=== PATIENT | female | born 1995 | race Caucasian/White ===

== ENCOUNTER 2017-11-15 07:47 | Emergency (ER) | payer OTHER, SELFPAY ==
[2017-11-15 07:49] VITALS: BP 162/98; PULSE 147; RESP 17; TEMP 37.5; O2SAT 96; BMI 51.5
--- NOTE | 2017-11-15 08:04 | ED.VISSUMM ---
- ER Visit Summary Date of Service: 11/15/17 Chief Complaint: Sore throat History of Present Illness: The patient is a [address] Packer. She reports that she has a sore throat that began yesterday. She had a fever to 100.9?. She describes the pain as sharp and severe. It is worsened with swallowing and relieved by nothing. She denies a cough. 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 Physical Examination: Vitals: 99.5, 162/98, 147, 17, 96% on room air which is not hypoxic. General: Well-nourished and well-developed. HEENT: Bilateral tonsillar enlargement and exudates. No peritonsillar abscess. No uvular shift. She does have tender anterior cervical lymphadenopathy. TMs are within normal limits. Head: Normocephalic atraumatic. Cardiovascular: Regular rate and rhythm. No murmurs. Respiratory: No respiratory distress. Clear to auscultation bilaterally. Abdominal: Soft, nontender, nondistended, normal bowel sounds. No guarding, rebound, or peritoneal signs. Back: Nontender. Extremities: Nontender, no edema. Skin: Normal color, no rash. Neurologic: Alert and oriented ?3. Cranial nerves II through XII are intact. Normal strength and sensation. Psych: Normal affect. Emergency Department Course and Treatment: The prolonged discussion with patient about her tachycardia. She began phentermine yesterday. She states that she has been drinking well except for overnight after her sore throat worsened. She refused an IV for fluids. Discussed the patient possibility of a negative rapid strep and 5 day wait for the return of her throat culture. She would like to be on antibiotics during this 5 day period of time regardless. Due to this she chose not to have the rapid strep and will be placed on amoxicillin. She is also given a dose of ibuprofen and dexamethasone. Her Centor score is 4 and I feel that this is a reasonable course of action. Treatment Plan: Patient will be discharged on amoxicillin. Instructed to follow-up with Dr. Villafuerte regarding her tachycardia from the phentermine. Follow-up Dr. Villalba 1 week if her throat is not improving. Return to the emergency department for any worsening symptoms. Disposition: To home in improved and stable condition. Impression: 1. Pharyngitis, presumed strep. 2. Sinus tachycardia on phentermine. This note was generated with [employer] dictation software. It may contain incorrect words, spelling, and punctuation that were not noted in review of the chart prior to signing ED Disposition - Plan for ED Patient: Chief Complaint: Sore Throat Instructions: ED Strep Pharyngitis Poss Prescriptions: Amoxicillin [Amoxil Suspension] 500 mg PO Q8H 10 Days ml Referrals: Joanie Packer MD [Primary Care Provider] - 1 Week if not improving Additional Instructions: Keep an eye on your heart rate and follow-up with Dr. Villafuerte regarding the fast heart rate from the phentermine.
--- NOTE | 2017-11-15 08:08 | ED.DCSUM_ITS ---
- ER Visit Summary Date of Service: 11/15/17 Chief Complaint: Sore throat History of Present Illness: The patient is a [address] Packer. She reports that she has a sore throat that began yesterday. She had a fever to 100.9?. She describes the pain as sharp and severe. It is worsened with swallowing and relieved by nothing. She denies a cough. 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 Physical Examination: Vitals: 99.5, 162/98, 147, 17, 96% on room air which is not hypoxic. General: Well-nourished and well-developed. HEENT: Bilateral tonsillar enlargement and exudates. No peritonsillar abscess. No uvular shift. She does have tender anterior cervical lymphadenopathy. TMs are within normal limits. Head: Normocephalic atraumatic. Cardiovascular: Regular rate and rhythm. No murmurs. Respiratory: No respiratory distress. Clear to auscultation bilaterally. Abdominal: Soft, nontender, nondistended, normal bowel sounds. No guarding, rebound, or peritoneal signs. Back: Nontender. Extremities: Nontender, no edema. Skin: Normal color, no rash. Neurologic: Alert and oriented ?3. Cranial nerves II through XII are intact. Normal strength and sensation. Psych: Normal affect. Emergency Department Course and Treatment: The prolonged discussion with patient about her tachycardia. She began phentermine yesterday. She states that she has been drinking well except for overnight after her sore throat worsened. She refused an IV for fluids. Discussed the patient possibility of a negative rapid strep and 5 day wait for the return of her throat culture. She would like to be on antibiotics during this 5 day period of time regardless. Due to this she chose not to have the rapid strep and will be placed on amoxicillin. She is also given a dose of ibuprofen and dexamethasone. Her Centor score is 4 and I feel that this is a reasonable course of action. Treatment Plan: Patient will be discharged on amoxicillin. Instructed to follow -up with Dr. Villafuerte regarding her tachycardia from the phentermine. Follow -up Dr. Villalba 1 week if her throat is not improving. Return to the emergency department for any worsening symptoms. Disposition: To home in improved and stable condition. Impression: 1. Pharyngitis, presumed strep. 2. Sinus tachycardia on phentermine. This note was generated with [employer] dictation software. It may contain incorrect words, spelling, and punctuation that were not noted in review of the chart prior to signing ED Disposition - Plan for ED Patient: Chief Complaint: Sore Throat Instructions: ED Strep Pharyngitis Poss Prescriptions: Amoxicillin [Amoxil Suspension] 500 mg PO Q8H 10 Days ml Referrals: Joanie Packer MD [Primary Care Provider] - 1 Week if not improving Additional Instructions: Keep an eye on your heart rate and follow-up with Dr. Villafuerte regarding the fast heart rate from the phentermine.
[2017-11-15] MEDS: Ibuprofen 100 MG/5 ML UDC 800 MG PO (08:27)
[2017-11-15 08:34] VITALS: BP 111/55; PULSE 95; RESP 18; O2SAT 97
[2017-11-15] MEDS: Amoxicillin 200MG/5 ML Susp PO.SYRINGE 500 MG PO (08:35)
--- NOTE | 2017-11-15 08:55 | ED.RN ---
PT REMAINS SLIGHTLY DIZZY. VITAL SIGNS STABLE. AWARE. COLD CLOTH PROVIDED. PT OFFERED IV FLUIDS. CONTINUES TO REFUSE AT THIS TIME BUT DOES KNOW ITS AN OPTION
[2017-11-15 10:17] VITALS: BP 146/92; PULSE 117; RESP 18
[2017-11-15 10:43] VITALS: BP 161/94; PULSE 110; RESP 18; O2SAT 97
== END 2017-11-15 10:47 | disposition home or self-care (01) ==
PROVIDERS: Emergency Provider Emergency Medicine; Family Provider Family Medicine; PCP Family Medicine
DX: J02.9 Acute pharyngitis, unspecified (principal); R00.0 Tachycardia, unspecified
CPT/HCPCS: 99283

== ENCOUNTER → 2018-02-25 08:07 | Outpatient (CLI) | payer OTHER, SELFPAY ==
--- NOTE | 2018-02-25 08:08 | US_ITS ---
STUDY: ABDOMINAL ULTRASOUND - RIGHT UPPER QUADRANT REASON FOR VISIT: Female, 22 years old. Intermittent right upper quadrant pain for one year. TECHNIQUE: Ultrasound evaluation of the right upper quadrant was performed with real-time and static gagnon-scale imaging. TECHNICAL QUALITY: Adequate. COMPARISON: Right upper quadrant ultrasound March 12, 2017. FINDINGS: Liver: The liver measures 16.8 cm. There is increased echogenicity consistent with fatty infiltration. The bile ducts are within normal limits. There is hepatic color flow. The direction of portal flow is hepatopetal. There is no demonstrated mass lesion. Gallbladder: Normal distended gallbladder. The gallbladder wall measures 2.9 mm. There is a negative sonographic Devi's sign. There is no pericholecystic fluid. There is small volume biliary sludge dependent within the gallbladder. Common Bile Duct (C.B.D.): The common bile duct measures 3.8 mm. Pancreas: Normal size of the head, body and tail of the pancreas. There is increased echogenicity of the pancreas. There is no demonstrated pancreatic mass or cyst. Right Kidney: Normal size of the right kidney. The right kidney measures 10.0 x 6.6 x 4.2 cm. Normal renal cortex. The right cortex measures 1.5 cm. There is no demonstrated renal mass or cyst. There is no right hydronephrosis. US/Abdomen Limited IMPRESSION: 1. Small volume sludge in the gallbladder. No sign of acute cholecystitis or bile duct obstruction. 2. Fatty infiltration of the liver and pancreas. Electronically Signed: Booker Curry MD at 16:08 EDT , Service support ,
== END ==
PROVIDERS: Family Provider Family Medicine; PCP Family Medicine; Visit Provider Family Medicine
DX: R10.84 Generalized abdominal pain (principal)
CPT/HCPCS: 76705

== ENCOUNTER → 2018-03-08 09:28 | Outpatient (CLI) | payer OTHER, SELFPAY ==
--- NOTE | 2018-03-08 09:32 | NM_ITS ---
CLINICAL: 22-year-old female with reported history of postprandial right upper quadrant abdominal pain. RADIONUCLIDE HEPATOBILIARY SCINTIGRAPHY COMPARISON: Abdominal ultrasound report 02/25/2018 FINDINGS: Following the intravenous administration of 5.5 mCi of 99m Tc Mebrofenin, hepatobiliary images reveal:. 1. Relatively prompt and homogeneous radiopharmaceutical concentration is noted by a normal sized liver. No parenchymal defects are identified. 2. Gallbladder activity is identified at 10 minutes post radiopharmaceutical administration. 3. Small intestinal tract is observed at 30 minutes following tracer injection. 4. Washout of the radiopharmaceutical by the hepatic parenchyma appears qualitatively normal. The patient was administered a fatty meal (8 ounces Boost). The post fatty meal ingestion gallbladder ejection fraction calculated at 60 minutes was noted to be 7.0 % (normal greater than 30%). NM/Hepatobilliary Img w/Pharm Int IMPRESSION: 1. ABNORMAL 99m Tc Mebrofenin hepatobiliary imaging examination with fatty meal ingestion. A. A gallbladder ejection fraction calculated to be less than 30% following the administration of an ingested fatty meal is consistent with the presence of functional hepatobiliary disease (gallbladder and/or sphincter of Oddi dyskinesia) and/or organic hepatobiliary disease (chronic acalculous cholecystitis and/or cystic duct syndrome) in patients with intermediate to high pretest probabilities of hepatobiliary illness. (Maritza and Diego, J Nucl Med 43: 1603, 2002). Electronically Signed: Toan Dunne DO at 10:06 EDT Tel , Service support ,
== END ==
PROVIDERS: Family Provider Family Medicine; PCP Family Medicine; Visit Provider Family Medicine
DX: R10.9 Unspecified abdominal pain (principal)
CPT/HCPCS: 78227; A9537

== ENCOUNTER 2018-03-23 11:15 | Day surgery (SDC) | payer OTHER, SELFPAY ==
[2018-03-23] VITALS (10 sets, daily range): BP systolic 132–157; BP diastolic 71–98; PULSE 80–107; RESP 16–20; TEMP 36.1–36.4; O2SAT 91–100; BMI 52.8
[2018-03-23 11:45] LABS: Internal QC Validated? YES +Cl - CLEAR BKGD; Pregnancy, Urine Negative Negative
--- NOTE | 2018-03-23 13:00 | RAD_ITS ---
STUDY: INTRAOPERATIVE CHOLANGIOGRAM. REASON FOR EXAM: Female, 22 years old. Laparoscopic cholecystectomy. FLUOROSCOPY TIME (if supplied): (0:12) minutes/seconds. TECHNIQUE: An intraoperative cholangiogram was performed by the surgeon. Imaging was provided. COMPARISON: None. FINDINGS: The visualized intra and extra hepatic biliary ducts are unremarkable. There is free flow of contrast into the duodenum. RAD/Cholangiogram/ O R,Initial IMPRESSION: Unremarkable intraoperative cholangiogram. Electronically Signed: Quinton Hu MD at 15:09 EDT Tel [phone], Service support ,
--- NOTE | 2018-03-23 13:00 | GALL_PTH ---
PATIENT: DIPIKA ALTAMIRANO LOC: [facility] U#:[id number] AGE/SX: 22/F ROOM: RE03/23/[address]: Dr. Rio Funk MD : 1995 BED: DIS: 03/23/2018 SPEC #: [id number] RECD: 03/23/18 15:14 STATUS: GRACIELA NEAL #: [id number] LEFTY: 03/23/18 13:[address]: Rio Funk DEPT: SURGICAL PATHOLOGY RECD BY: Toan Damon ENTERED: 03/24/18 08:17 SP TYPE: LEYDA LOCKHART DR: Dr. Joanie Packer MD Tissues: Gallbladder, NOS Procedures: Surgery Specimen Level III HEADER OPERATION: Laparoscopic cholecystectomy with IOC PRE-OP DIAGNOSIS: Gallbladder sludge TISSUE SUBMITTED: Gallbladder MICROSCOPIC DIAGNOSIS Gallbladder, cholecystectomy: Cholesterolosis and mild chronic cholecystitis. AM:lan 03/25/18 MICROSCOPIC DESCRIPTION Slides are reviewed. GROSS DESCRIPTION Received is one container labeled with the patient's name and designated gallbladder. The specimen consists of a gallbladder measuring 6.5 cm in length and 3 cm in diameter. The external surface is pink-noble, smooth and glistening for the most part. Focally it is granular, hemorrhagic and contains cautery artifact. The gallbladder contains green-yellow mucoid bile. No stones are identified in the container or in the gallbladder. The mucosa also shows several yellowish streaks consistent with cholesterolosis. The mucosa is bile-stained and without any mass lesions. The gallbladder wall measures 0.2 cm in thickness. School Manager sections from the gallbladder and the cystic duct are submitted in one cassette. / SJ:rg 03/24/18 TC:3 [facility]: [id number]
[2018-03-23] MEDS: Bupivacaine 0.25% 30 ML Vial (14:26)
--- NOTE | 2018-03-23 14:26 | OP.PCM_ITS ---
Problem List (1) Biliary colic Status: Acute Report of Operation Date of Procedure: 03/23/18 Pre-Operative Diagnosis: Biliary colic Post-Operative Diagnosis: Same Surgery/Procedure Performed:: Laparoscopic cholecystectomy with Intra-Op cholangiograms Specimen's removed: Gallbladder and contents Description of Procedure: After obtaining informed consent patient was brought back to the operating room. General anesthesia was induced. The abdomen was prepped and draped in usual sterile fashion. A small incision was made in the right upper quadrant. A 5 mm port was used in a Visiport fashion to enter the abdomen. The abdomen was then insufflated to 15 mmHg. Next a small midline incision was made superior to the umbilicus. A 12 mm port was placed through this under direct visualization. Next the camera was moved to the umbilical site and the abdomen was inspected for any injuries upon entering the abdomen and there were none. Next a 5 mm port was placed in the subxiphoid space and again in the right upper quadrant. Next the gallbladder was elevated and retracted toward the right shoulder. The peritoneum was stripped from the gallbladder. The infundibulum was located and retracted laterally. Next the triangle of Calot was dissected and the cystic duct and cystic artery were identified. Cholangiograms were performed. The Church catheter was used to clamp across the infundibulum and the needle was inserted into the gallbladder. Under fluoroscopy contrast was instilled into the gallbladder and the common duct, cystic duct as well as proximal hepatic ducts were identified. There was good filling of the duodenum. There were no filling defects noted in the common bile duct. The clamp was removed as well as the needle and the infundibulum was grasped once more. Three hemolock clips were placed across the cystic duct. The cystic duct was then divided leaving 2 clips on the stump. The cystic artery was clipped and divided in the same fashion. The hook cautery was then used to take the gallbladder off of the gallbladder bed. Hemostasis was obtained. Gallbladder fossa was irrigated and no active bleeding or bile leakage was noted. Next the camera switched to a 5 mm camera and introduced in the subxiphoid port. An Endopouch bag was placed through the umbilical port and the gallbladder was placed into it. The gallbladder was then removed through the umbilical incision. The camera was then reinserted through the umbilical port. The gallbladder fossa was inspected once more and noted to be hemostatic with no leaking bile. The abdomen was suctioned dry the 5 mm ports were removed under direct visualization. The umbilical port was then removed and the air was removed from the abdomen. Next using an 0 Vicryl suture the umbilical fascia was closed in a [id number] fashion. The umbilical port site was irrigated local anesthetic was administered to all the incisions. All the incisions were closed subcuticular 4-0 Monocryl sutures followed by Steri- Strips and dressings. The patient was awoken and taken to PACU in stable condition. - Admit VTE Documentation VTE Mechan Device Prophylaxis: SCD's
--- NOTE | 2018-03-23 14:28 | PCM.DC.GB ---
Discharge Diet: Light diet - advance as tolerated Discharge Activity: Return to Normal Activity, May Not Drive - for 2-3 days or while taking narcotic pain medicataions., - - Do not drive, work heavy equipment or sign legal documents for 24 hours. May shower in (days): 1 - with the bandage in place. Lifting Restrictions: 20 lbs for 2 weeks Additional Activity Instructions:: Pain medication may cause nausea. You should typically eat light foods as you take your pain medications. Pain medication may also cause constipation. If this is a problem for you, please discuss with your doctor. Call your doctor if your incision/area has: Continuous Slow Oozing, Sudden Increased Bleeding, Increased Pain/ Swelling, Increased Redness, Foul Smelling Discharge, Fever of 101 or Higher Call your doctor if you observe: Fever of 101 or Higher Suture Line Care: Avoid Pulling/Pushing, Avoid Pinching/Bending Additional Dressing/Incision Instructions:: Leave operative bandaids on for 2 days. When you remove dressing, leave Steri-Strips on until your follow-up appointment, or until the Steri-Strips fall off on their own. Allergies/Adverse Reactions: Allergies No Known Allergies Allergy (Verified 03/22/18 10:55) Medications to take at Discharge Oxycodone HCl/Acetaminophen [Percocet 5/325] 1 - 2 tablet PO Q4H PRN PRN 7 Days #40 tablet 03/23/18 The following prescriptions were given: Oxycodone HCl/Acetaminophen [Percocet 5/325] 1 - 2 tablet PO Q4H PRN PRN 7 Days #40 tablet PRN Reason: Pain Primary Care Physician: Joanie Packer MD [Primary Care Provider] - Please Follow Up With: Rio Funk MD When: Please call to schedule 2 week follow up appointment. [phone]
== END 2018-03-23 17:45 | disposition home or self-care (01) ==
LOC: SDC 11:15 → AC 11:17
PROVIDERS: Family Provider Family Medicine; PCP Family Medicine; Visit Provider Surgery
PROC: (CPT 47610; principal; 2018-03-23 12:40)
DX: K80.10 Calculus of gallbladder with chronic cholecystitis without obstruction (principal); E28.2 Polycystic ovarian syndrome; Z87.891 Personal history of nicotine dependence; E66.9 Obesity, unspecified; Z68.43 Body mass index [BMI] 50.0-59.9, adult
CPT/HCPCS: 00790; 47563; 74300; 76000; 81025; 88304; 93005; J7120; J2405

== ENCOUNTER → 2018-07-18 08:52 | Outpatient (CLI) | payer OTHER, SELFPAY ==
[2018-07-18 09:49] LABS: hCG Titer Quant., Serum < 1 mIU/mL (<9 non-preg)
== END ==
PROVIDERS: Family Provider Family Medicine; PCP Family Medicine; Visit Provider Obstetrics & Gynecology
DX: O20.0 Threatened abortion (principal); Z3A.00 Weeks of gestation of pregnancy not specified
CPT/HCPCS: 36415; 84702

== ENCOUNTER → 2018-07-20 08:04 | Outpatient (CLI) | payer OTHER, SELFPAY ==
[2018-07-20 08:51] LABS: hCG Titer Quant., Serum < 1 mIU/mL (<9 non-preg)
== END ==
PROVIDERS: Family Provider Family Medicine; PCP Family Medicine; Referring Provider Obstetrics & Gynecology; Visit Provider Obstetrics & Gynecology
DX: O20.0 Threatened abortion (principal)
CPT/HCPCS: 36415; 84702

== ENCOUNTER → 2019-01-27 09:55 | Outpatient (CLI) | payer OTHER, SELFPAY ==
[2018-10-31 14:02] VITALS: BMI 51.7
[2019-01-27 11:35] LABS: hCG Titer Quant., Serum < 1 mIU/mL (<9 non-preg)
== END ==
PROVIDERS: Family Provider Family Medicine; PCP Family Medicine; Referring Provider Obstetrics & Gynecology; Visit Provider Obstetrics & Gynecology
DX: Z32.01 Encounter for pregnancy test, result positive (principal)
CPT/HCPCS: 36415; 84702

== ENCOUNTER → 2019-11-13 15:56 | Outpatient (CLI) | payer BC, SELFPAY ==
[2019-03-22 10:28] VITALS: BMI 51.7
[2019-11-13 17:35] LABS: hCG Titer Quant., Serum < 1 mIU/mL (1-3)
== END ==
PROVIDERS: Obstetrics & Gynecology; Referring Provider Nurse Practitioner Women's Health; Visit Provider Nurse Practitioner Women's Health
DX: Z32.01 Encounter for pregnancy test, result positive (principal)
CPT/HCPCS: 36415; 84702

== ENCOUNTER → 2020-06-06 | Outpatient (CLI) | payer BC, SELFPAY ==
[2019-03-22 10:28] VITALS: BMI 51.7
--- NOTE | 2020-06-06 11:17 | RAD_ITS ---
STUDY: X-RAY - LEFT ANKLE REASON FOR EXAM: Female, 24 years old. ROLLED ANKLE X2 DAYS AGO, PAIN TECHNIQUE: 3 view(s) of the ankle. COMPARISON: None. FINDINGS: Normal visualized distal tibia and fibula. Normal medial and lateral malleoli. Normal tibiotalar articulation and ankle mortise. Normal visualized talus and calcaneus. The visualized subtalar, talonavicular, calcaneocuboid and tarsal articulations are normal. Lateral soft tissue swelling. RAD/Ankle min 3 Views IMPRESSION: Lateral soft tissue ankle injury without underlying fracture or dislocation. Electronically Signed: Anisha Granados MD at 23:10 EDT , Service support ,
== END | disposition home or self-care (01) ==
LOC: MTRAD 11:16
PROVIDERS: PCP Family Medicine; Referring Provider Family Medicine; Visit Provider Family Medicine
DX: S99.912A Unspecified injury of left ankle, initial encounter (principal)
CPT/HCPCS: 73610

== ENCOUNTER 2021-02-19 19:09 | Emergency (ER) | payer OTHER, SELFPAY ==
[2019-03-22 10:28] VITALS: BMI 51.7
[2021-02-19 19:09] VITALS: BP 170/113; PULSE 102; RESP 18; TEMP 35.8; O2SAT 97; BMI 44.2
--- NOTE | 2021-02-19 20:09 | EDS_ITS ---
HPI HPI - Psych History of Present Illness Chief Complaint: Anxiety Informant: patient Onset/Context/Timing Onset: Days Context: Sudden Onset Conflict: - (Patient states there is been no conflict with , family, associates at work or friends.) Timing: Continuous Current Severity: Mild Maximum Severity: Moderate Worsened by: - (Nothing) Relieved by: Nothing Associated Symptoms Associated Symptoms - Psych: Positive for Change in Eating and Increased activity; Negative for Depressed, Change in sleeping, Decreased Interest, Decreased Concentration, Hopelessness, Suicidal Thoughts, Easily distracted, Grandiosity, Flight of Ideas, Pressured Speech, Agitated, Angry, Hostile, Threatening, Confusion, Paranoia, Visual Hallucinations and Auditory Hallucinations Specific plan (suicidal thought): Not applicable Narrative Narrative: Patient is a 25-year-old female who presents because of r acing thoughts and feeling anxious. She has no precipitating factor. She denies any issues at home or work or with friends. She denies being depressed or suicidal. There is no significant family history of psychiatric disorder. She has no other complaints. Prior similar symptoms: No Recent Illness/[facility]ospital[facility]: [facility] Medical History BMI 50.0-59.9, adult Chronic cholecystitis PCOS (polycystic ovarian syndrome) PCOS (polycystic ovarian syndrome) Home Medications lorazepam 0.5 mg PO TID #10 tab 02/19/21 [Rx Last Taken Unknown] Allergy/AdvReac Type Severity Reaction Status Date / Time No Known Allergies Allergy Verified 02/19/21 19:12 Surgical History History of laparoscopic cholecystectomy (~03/23/18) Social History (Updated 02/19/21 @ 20:[address] Fan Butler MD) Smoking Status: Current every day smoker alcohol intake: current details: social substance use type: does not use caffeine: Yes what type of physical activity do you participate in: walking seatbelt use: always do you feel safe at home: Yes additional social history: Spouse Valeriy Shipley Patient works at [employer] for [employer] ROS ED Constitutional Constitutional ED: Denies chills, fever(s), subjective or sweats Eyes Eyes: Denies blurry vision or change in vision ENT ENT ED: Denies ear pain, rhinorrhea or sore throat Cardiovascular Cardiovascular: Denies chest pain, palpitations or racing heartbeat Respiratory/Chest Respiratory/Chest: Denies cough, dyspnea or dyspnea on exertion Gastrointestinal Gastrointestinal: Denies abdominal pain, diarrhea, nausea or vomiting Genitourinary Genitourinary ED: Denies dysuria, hematuria or urinary frequency Musculoskeletal Musculoskeletal: Denies arthralgias, back pain, myalgias or neck pain Integumentary Denies rash Neurologic Neurologic: Denies headache(s), paresthesias or weakness Psychiatric Psychiatric: Reports anxiety; Denies depression or suicidal thoughts EXAM Physical Exam Const Vital Signs: 02/19/21 19:09 Temperature 96.5 F L Temperature Source Temporal Pulse Rate 102 H Respiratory Rate 18 Blood Pressure 170/113 H Blood Pressure Mean 132 Pulse Ox 97 Oxygen Delivery Method Room Air Positive well nourished, well developed and obese General Appearance ED: well developed; Negative for pallor Nutritional Appearance: obese HEENT Reports moist mucous membranes normocephalic and atraumatic Eyes PERRL and EOMs intact bilaterally Eyes Narrative: There is no nystagmus. General Eye ED: Negative for pale conjunctiva or scleral icterus Neck no lymphadenopathy, supple and no JVD Resp normal respiratory effort and clear to auscultation bilaterally Cardio S1 normal heart sound, S2 normal heart sound and no murmurs Rate: regular rate Rhythm: regular rhythm GI non-tender, non-distended and no masses Auscultation: normoactive bowel sounds Palpation: soft Back/Spine no CVA tenderness Extremity normal to inspection General Extremety ED: Negative for edema or tenderness General Extremity: Negative for edema Neuro oriented x3, CN's II-XII intact bilaterally, no sensory deficits noted and deep tendon reflexes 2+ bilaterally Sensorium / Orientation: alert Motor Exam: strength 5/5 throughout Psych mental status grossly normal, thought process normal, cooperative, affect normal, speech normal, activity/motor behavior normal, denies hallucinations, denies homicidal ideation and denies suicidal ideation Appearance: grossly normal, appropriate and well kempt Activity / Motor Behavior: appropriate eye contact Speech: normal speech Mood & Affect: elevated mood Thought Process: normal thought process Thought Content: normal thought content Attention / Concentration: attention grossly intact Memory / Cognition: memory grossly intact Insight: insight good Judgement: judgement good Skin General Skin Exam: Negative for jaundice or pallor Lesions: no lesions Rashes: no rashes MDM MDM MDM Narrative Medical decision making narrative: Patient presents with feeling anxious and her mind racing. She was treated with Ativan in the emergency department and a prescription for Ativan. Since she is not a primary care physician she was referred to a primary care physician and the counseling center. She denies any symptoms to suggest hyperthyroidism. Discharge Plan Triage Chief Complaint: Anxiety ED Provider: Fan Butler Dx/Rx/DC Orders Instructions: ED Anxiety Reaction Prescriptions: New lorazepam [lorazepam] 0.5 MG tablet 0.5 mg PO TID Qty: 10 RF: 0 Referrals: Counseling,Center [GROUP OF PHYSICIANS] - 3-5 Days Fernando Hinojosa MD [STAFF PHYSICIAN] - 3-5 Days (Referred since she has no PCP and referral to counseling center) Disposition Disposition: Home, self care
[2021-02-19] MEDS: LORazepam 0.5 MG Tablet PO (20:13)
[2021-02-19 20:41] VITALS: BP 156/60; PULSE 83; RESP 18; O2SAT 96
== END 2021-02-19 20:44 | disposition home or self-care (01) ==
PROVIDERS: Emergency Provider Emergency Medicine
DX: F41.9 Anxiety disorder, unspecified (principal); F17.200 Nicotine dependence, unspecified, uncomplicated; E66.9 Obesity, unspecified; Z79.899 Other long term (current) drug therapy
CPT/HCPCS: 99283

== ENCOUNTER 2021-03-26 14:25 | Emergency (ER) | payer OTHER, SELFPAY ==
[2021-03-26 14:25] VITALS: BP 173/108; PULSE 115; RESP 22; TEMP 36.2; O2SAT 95; BMI 56.7
--- NOTE | 2021-03-26 14:34 | EDS_ITS ---
HPI History of Present Illness Chief Complaint: Asthma Informant: patient Onset/Context/Timing Onset: Today Context: Gradual Onset Timing: Waxes and wanes Current Severity: Mild Maximum Severity: Moderate Narrative Narrative: Patient present secondary to asthma attack. Patient states she was at work going up and down steps. She is exercise induced asthma and states she started to get tight and wheezy. Her inhaler is at home and she did not have her with her at work. Symptoms started about an hour ago when she states this attack seems to be lasting longer than normal. It is improving. Patient does admit that she has anxiety and is not sure if her symptoms are lasting longer because she had a panic attack with this episode. She denies recent illness. No cough, fever, chills. [facility] Medical History (Updated 03/26/21 @ 16:[address] Shari Rojas MD) Anxiety Asthma BMI 50.0-59.9, adult Chronic cholecystitis PCOS (polycystic ovarian syndrome) Home Medications lorazepam 0.5 mg PO TID #10 tab 02/19/21 [Rx Last Taken Unknown] Allergy/AdvReac Type Severity Reaction Status Date / Time No Known Allergies Allergy Verified 03/26/21 14:28 Surgical History History of laparoscopic cholecystectomy (~03/23/18) Social History Smoking Status: Current some day smoker tobacco type: cigarettes alcohol intake: current details: social substance use type: does not use caffeine: Yes what type of physical activity do you participate in: walking seatbelt use: always do you feel safe at home: Yes additional social history: Spouse Valeriy Shipley Patient works at [employer] for [employer] ED Constitutional Constitutional ED: Denies chills or fever(s) Eyes Eyes: Denies change in vision ENT ENT ED: Denies sore throat Cardiovascular Cardiovascular: Denies chest pain Respiratory/Chest Respiratory/Chest: Reports dyspnea; Denies cough Gastrointestinal Gastrointestinal: Denies abdominal pain, diarrhea, nausea or vomiting Genitourinary Genitourinary ED: Denies dysuria Musculoskeletal Musculoskeletal: Denies back pain Integumentary Denies rash Neurologic Neurologic: Denies headache(s) or weakness Psychiatric Psychiatric: Denies anxiety or depression Endocrine Endocrinology: Denies polydipsia or polyuria Allergic/Immunologic Allergic/Immunologic ED: Denies urticaria EXAM Physical Exam Const Vital Signs: 03/26/21 14:25 03/26/21 15:06 03/26/21 15:07 Temperature 97.1 F L Temperature Source Temporal Pulse Rate 115 H 75 Respiratory Rate 22 H 16 Respiratory Effort Respiratory Depth Respiratory Pattern Normal Blood Pressure 173/108 H Blood Pressure Mean 129 Pulse Ox 95 98 Oxygen Delivery Method Room Air Room Air 03/26/21 15:25 Temperature Temperature Source Pulse Rate Respiratory Rate Respiratory Effort Normal Respiratory Depth Normal Respiratory Pattern Normal Blood Pressure Blood Pressure Mean Pulse Ox Oxygen Delivery Method Room Air Positive well nourished and well developed General Appearance ED: well developed HEENT Reports normocephalic and head/scalp atraumatic Eyes PERRL and EOMs intact bilaterally Neck supple Chest Wall inspection of chest normal and palpation of chest normal Resp normal respiratory effort Auscultation: diminished lung sounds Cardio regular rate and regular rhythm GI normal to inspection, nondistended, normoactive bowel sounds Palpation: soft Extremity normal to inspection Neuro oriented x3 and no sensory deficits noted Sensorium / Orientation: alert Motor Exam: strength 5/5 throughout Psych mental status grossly normal Skin no rashes or lesions noted MDM MDM MDM Narrative Medical decision making narrative: Patient was given p.o. prednisone and a DuoNeb. Treatment and Re-Evaluation Comments:: On repeat evaluation patient reports her breathing is back to baseline. Lungs are clear to auscultation. Sat is 98% on room air. Respiratory rate is normal. Patient be discharged to home. She has a rescue inhaler at home that she will start carrying with her. She is provided a work note for today. Discharge Plan Triage Chief Complaint: Asthma ED Provider: Shari Rojas Dx/Rx/DC Orders Clinical Impression: Asthma exacerbation Instructions: ED Asthma, Acute (Adult) Prescriptions: No Action lorazepam [lorazepam] 0.5 MG tablet 0.5 mg PO TID Qty: 10 RF: 0 Primary Care Provider: Kristy Chairez Referrals: Kristy Chairez MD [Primary Care Provider] - As Needed Disposition Disposition: Home, self care
[2021-03-26] MEDS: Ipratropium/Albuterol Sulfate 3 ML AMPUL.NEB INHALATION (15:05)
[2021-03-26 15:06] VITALS: O2SAT 98
[2021-03-26 15:07] VITALS: PULSE 75; RESP 16
[2021-03-26 15:25] VITALS: O2SAT 97
[2021-03-26] MEDS: predniSONE 20 MG Tablet 60 MG PO (15:28)
[2021-03-26 16:34] VITALS: PULSE 90; RESP 16; O2SAT 98
== END 2021-03-26 16:36 | disposition home or self-care (01) ==
PROVIDERS: Emergency Provider Emergency Medicine; PCP Family Medicine
DX: J45.901 Unspecified asthma with (acute) exacerbation (principal); F41.9 Anxiety disorder, unspecified; F17.210 Nicotine dependence, cigarettes, uncomplicated; Z79.899 Other long term (current) drug therapy
CPT/HCPCS: 94640; 99283

== ENCOUNTER → 2021-03-28 09:57 | Outpatient (CLI) | payer OTHER, SELFPAY ==
[2021-03-26 14:25] VITALS: BMI 56.7
[2021-03-28 12:40] LABS: hCG Titer Quant., Serum < 1 mIU/mL (1-3)
== END ==
LOC: MTLAB 09:58
PROVIDERS: PCP Family Medicine; Referring Provider Family Medicine; Visit Provider Family Medicine
DX: N91.2 Amenorrhea, unspecified (principal)
CPT/HCPCS: 36415; 84702

== ENCOUNTER 2021-06-27 07:11 | Emergency (ER) | payer SELFPAY ==
[2021-06-27 07:12] VITALS: BP 175/114; PULSE 85; RESP 18; TEMP 36.4; O2SAT 98; BMI 58.4
[2021-06-27 08:06] LABS: Absolute Lymphocyte Count 2.08 X10^3/uL (0.83-4.51); Absolute Neutrophil Count 5.6 X10^3/uL (2.0-7.7); Basophil# 0.05 X10^3/uL; Basophil% 0.6 % (0-1); Eosinophil# 0.08 X10^3/uL; Eosinophils% 0.9 % (0-5); Hematocrit 40.3 % (37-47); Hemoglobin 12.8 g/dL (12.0-15.0); Lymphocyte # 2.08 X10^3/ul (0.83-4.51); Lymphocyte % 24.7 % (19-41); Mean Corp Hgb Conc 31.8 g/dL (32-36); Mean Corpuscular Hgb 27.9 pg (27.0-32.0); Mean Corpuscular Volume 87.8 fL (81-99); Mean Platelet Vol. 11.1 fl (6.2-12.0); Monocyte# 0.54 X10^3/uL; Monocyte% 6.4 % (0-10); NRBC Flagged by Analyzer 0 % (0-5); Neutrophil % 66.5 % (47-70); Platelet Count 174 K/mm3 (150-450); RBC Distribution Width CV 13.5 % (11.6-14.6); RBC Distribution Width SD 43.4 fl (35.1-43.9); Red Blood Count 4.59 M/mm3 (4.2-5.4); White Blood Count 8.4 K/mm3 (4.4-11.0)
[2021-06-27 08:21] LABS: International Normalized Ratio 0.9; Prothrombin Time (Protime)PT. 11.5 SECONDS (11.7-14.9)
[2021-06-27 08:25] LABS: ALB/GLOB Ratio 0.6 RATIO (0.9-2.4); AST(SGOT) 23 U/L (15-37); Alanine Aminotransfer ALT/SGPT 34 U/L (13-56); Albumin, Serum 2.9 g/dL (3.2-5.0); Alkaline Phosphatase 77 U/L (45-117); Anion Gap 4 (5-15); BUN 10 mg/dL (7-18); BUN/Creat Ratio 13.2 RATIO (10-20); Calcium,Total 8.5 mg/dL (8.5-10.1); Chloride 109 mmol/L (98-107); Creatinine, Serum 0.76 mg/dL (0.55-1.02); EST Glomerular Filtration Rate 98 mL/min (>60); Est Glom Filt Rate - Afr Amer 118 mL/min (>60); Estimated Creatinine Clearance 96.01 ml/min; Globulin 4.5 g/dL (2.2-4.2); Glucose 114 mg/dL (74-106); Potassium 4.1 mmol/L (3.5-5.1); Protein, Total 7.4 g/dL (6.4-8.2); Sodium Level 139 mmol/L (136-145)
[2021-06-27 10:23] VITALS: BP 160/98; PULSE 79; RESP 16; O2SAT 98
--- NOTE | 2021-06-28 11:37 | EDS_ITS ---
HPI HPI - GI History of Present Illness Chief Complaint: GI Bleed Narrative Narrative: Patient presenting with concern for GI bleed. She has blood on the toilet paper when she wipes. This is a new issue for her. She denies any lightheadedness, dizziness, nausea, vomiting. She has no melena. She has no abdominal pain. Patient states that she does not have any known hemorrhoids. She states it is not painful when she defecates. PFSH PFSH Medical History Anxiety Asthma BMI 50.0-59.9, adult Chronic cholecystitis PCOS (polycystic ovarian syndrome) Home Medications albuterol sulfate [ProAir HFA] 1 - 2 inh INHALATION Q4H PRN PRN 03/26/21 [History Last Taken Unknown] Allergy/AdvReac Type Severity Reaction Status Date / Time No Known Allergies Allergy Verified 06/27/21 07:13 Surgical History History of laparoscopic cholecystectomy (~03/23/18) Social History Smoking Status: Current some day smoker tobacco type: cigarettes alcohol intake: current details: social substance use type: does not use caffeine: Yes what type of physical activity do you participate in: walking seatbelt use: always do you feel safe at home: Yes additional social history: Spouse Valeriy Shipley Patient works at [employer] for [employer] ED Constitutional Constitutional ED: Denies chills, fever(s) or sweats ENT ENT ED: Denies rhinorrhea or sore throat Cardiovascular Cardiovascular: Denies chest pain or palpitations Respiratory/Chest Respiratory/Chest: Denies cough, dyspnea or sputum Gastrointestinal Gastrointestinal: Reports other Details: GI bleeding ; Denies abdominal pain, nausea or vomiting Genitourinary Genitourinary ED: Denies dysuria or hematuria Musculoskeletal Musculoskeletal: Denies arthralgias or myalgias Integumentary Denies abscess, Abrasions or rash Neurologic Neurologic: Denies headache(s) or weakness EXAM Physical Exam Const Positive well nourished General Appearance ED: NAD; Negative for pallor HEENT Reports moist mucous membranes normocephalic and atraumatic Eyes PERRL and EOMs intact bilaterally General Eye ED: Negative for pale conjunctiva Neck no lymphadenopathy and supple Resp normal respiratory effort Cardio regular rate and regular rhythm GI non-tender and non-distended GI Narrative: No internal/external hemorrhoids noted on examination. Patient has brown stool with mucus and a small blood tingeing on stool sample. Palpation: soft Back/Spine no CVA tenderness Neuro Sensorium / Orientation: alert, oriented to person, oriented to place and oriented to time Skin General Skin Exam: Negative for pallor Lesions: no lesions Rashes: no rashes MDM MDM MDM Narrative Medical decision making narrative: Patient presenting with blood on toilet paper when she wipes. Patient has a small amount of blood on rectal exam and there are no hemorrhoids either internal or externally that I note. Patient's vital signs are stable and she is afebrile. Patient's hemoglobin is 12.8. Coagulation studies normal. Renal function electrolytes are normal. Patient was discussed with Dr. Meza who felt she was stable for outpatient follow- up. Patient is counseled to return if she has increasing bleeding or symptoms such as lightheadedness, dizziness, shortness of breath. Patient acknowledged understanding. She is discharged home in stable condition. Impression 1. Lower GI bleed stable Discharge Plan Triage Chief Complaint: GI Bleed ED Provider: Bridger Salmeron Dx/Rx/DC Orders Instructions: ED Lower GI Bleeding (Stable) Prescriptions: No Action albuterol sulfate [ProAir HFA] 90 mcg/actuation HFA aerosol inhaler 1 - 2 inh INHALATION Q4H PRN PRN (Reason: wheezing) RF: 0 Primary Care Provider: Kristy Chairez Referrals: Kristy Chairez MD [Primary Care Provider] - Ana Meza MD [STAFF PHYSICIAN] - As soon as possible Disposition Disposition: Home, Self Care Discharge Date/Time: 06/27/21 10:25
== END 2021-06-27 10:25 | disposition home or self-care (01) ==
PROVIDERS: Emergency Provider Student in an Organized Health Care Education/Training Program; PCP Family Medicine
DX: K92.2 Gastrointestinal hemorrhage, unspecified (principal); J45.909 Unspecified asthma, uncomplicated; F17.210 Nicotine dependence, cigarettes, uncomplicated; Z79.51 Long term (current) use of inhaled steroids
CPT/HCPCS: 80053; 85025; 85610; 99283; A4216

== ENCOUNTER 2021-07-11 06:47 | Day surgery (SDC) | payer SELFPAY ==
--- NOTE | 2021-07-11 07:01 | HP.PCM_ITS ---
History and Physical Date of Admission: 07/11/21 Intake Vital Signs 07/02/21 08:13 Height 5 ft 4 in Weight: 340 lb BMI 58.3 BP 138/81 H Blood Pressure Location Rt brachial Position Sitting Respiration 18 Intake Visit Reasons: ER F/U GI BLEEDING Chief Complaint: f/u GI bleed [employer] Worker Required: No Is patient in pain?: No Allergies No Known Allergies Allergy (Verified 07/02/21 08:00) Medications albuterol sulfate [ProAir HFA] 1 - 2 inh INHALATION Q4H PRN PRN 03/26/21 [History Confirmed 06/27/21] escitalopram oxalate 20 mg tablet 20 mg PO DAILY 07/02/21 [History Confirmed 07/02/21] lorazepam 1 mg tablet 1 mg PO DAILY PRN 07/02/21 [History Confirmed 07/02/21] PFSH Medical History Anxiety Asthma BMI 50.0-59.9, adult Chronic cholecystitis PCOS (polycystic ovarian syndrome) Surgical History History of laparoscopic cholecystectomy (~03/23/18) Social History Smoking Status: Current some day smoker tobacco type: cigarettes alcohol intake: current details: social substance use type: does not use caffeine: Yes what type of physical activity do you participate in: walking seatbelt use: always do you feel safe at home: Yes additional social history: Spouse Valeriy Shipley Patient works at [employer] for [employer] Female Reproductive History Menstrual Ab spontaneous: 1 HPI HPI HPI: DIPIKA MICHAELS, is a 26 F who presents to the office today for rectal bleeding. The patient reports for the last week she has been having bright red blood per rectum. She is also having pain with defecation. She does not report any hard stools or constipation. She does not have any anal or rectal pain at rest. No abdominal pain. No nausea or vomiting. ROS General General: Yes fatigue; No weight change, appetite, colon cancer, breast cancer or weakness HEENT HEENT: No difficulty swallowing, eye injury, eye surgery, swollen glands or hoarseness Endo Endocrine: No thyroid disease, diabetes mellitus, thyroid cancer, Hair loss, heat intolerance or cold intolerance Skin Skin: No rash or changing moles Breast Breast: No left breast lump, right breast lump, nipple discharge, breast pain, abnormal mammogram, abnormal US or breast enlargement Musc Musculoskeletal: Yes back problems; No arthritis, rheumatoid arthritis, gout or joint pain Cardio Cardiovascular: No murmur, pacemaker, heart disease, atrial fibrillation, high blood pressure, heart attack, heart stent, palpitations, shortness of breat with exertion or chest pain Psych Psychiatric: Yes depression and anxiety; No hearing voices Resp Respiratory: No shortness of breath, No sleep apnea, No cough, No COPD, Yes asthma, No emphysema and No wheezing Gastro Gastrointestinal: No abdominal pain, No nausea or vomiting, Yes diarrhea, No constipation, Yes blood in stool, No acid reflux, Yes hemorrhoids, No ulcers, No gallbladder problem and No black,tarry stools Raúl Hematologic: No blood thinners, No blood disorders, No bleeding, No anemia and No blood clots Neuro Neurologic: No system reviewed and no additional complaints, except as documented, No as per HPI, No abnormal gait, No abnormal hearing, No abnormal movements, No abnormal speech, No behavioral changes, No burning sensations, No confusion, No convulsions, No disequilibrium, No dizziness, No localized weakness, No frequent falls, No headache(s), No lack of coordination, No loss of vision, No memory loss, No numbness, No other visual disturbances, No radicular pain, No restless legs, No sensory deficit, No syncope, No tingling, No tremor(s), No weakness and No other Exam Const General: cooperative Orientation: alert and oriented x3 HENMT Head: normal to inspection Neck Neck: normal visual inspection and full ROM Chest Chest palpation & inspection: normal inspection of the chest Resp Effort & Inspection: normal respiratory effort Auscultation: clear to auscultation bilaterally Cardio Rate: regular rate Rhythm: regular rhythm GI Inspection: non-distended Palpation: soft and nontender Skin General: no rashes or lesions noted Neuro General: patient alert and patient oriented x3 Extrem General: full ROM Psych Appearance: grossly normal Mental Status: mental status grossly normal Assessment and Plan Assessment and Plan (1) Rectal bleeding: Status: Acute Orders: Orders: Colonoscopy Today Plan - Dr. Rio Funk MD: Patient reports that she is having bright red rectal bleeding. On physical exam I did not note any external hemorrhoids or fissure. I recommend the patient start with colonoscopy for her work-up to ensure that there is no proximal cause of the bleeding. I will also examine the internal hemorrhoids during this exam. I explained endoscopy in detail to the patient. I explained the risks including but not limited to stroke or heart attack with anesthesia, perforation of the GI tract, bleeding, infection. I explained that any of these could necessitate further emergency surgery. The patient understands and all questions were answered sufficiently. The patient wishes to proceed with procedure. Rio Funk MD Pager: [facility] [address] [place] [address], [address] [place] [address] Office: I have re-examined the patient. There are no clinical changes since date of exam.
[2021-07-11 07:14] LABS: Internal QC Validated? YES +Cl - CLEAR BKGD; Pregnancy, Urine Negative Negative
[2021-07-11 07:21] VITALS: BP 135/95; PULSE 86; RESP 16; TEMP 36.6; O2SAT 99; BMI 26.2
[2021-07-11] MEDS: Lactated Ringers 1,000 ML 100 ML IV (07:27)
[2021-07-11 08:15] VITALS: BP 120/79; BP 135/95; PULSE 77; RESP 18; TEMP 36.1; O2SAT 97
--- NOTE | 2021-07-11 08:15 | OP.COLON_ITS ---
Patient Name: Charlotte Fernandez Procedure Date: 07/11/2021 7:37 AM Date of : 1995 Age: 26 Procedure: Colonoscopy Indications: Rectal bleeding Providers: Rio Funk MD Referring MD: Kristy Chairez Medicines: Monitored Anesthesia Care Patient Profile: This is a 26 year old female. Refer to note in patient chart for documentation of history and physical. Last Colonoscopy: none. The patient's first colonoscopy is today. Complications: No immediate complications. Procedure: Pre-Anesthesia Assessment: - Prior to the procedure, a History and Physical was performed, and patient medications and allergies were reviewed. The patient's tolerance of previous anesthesia was also reviewed. The risks and benefits of the procedure and the sedation options and risks were discussed with the patient. All questions were answered, and informed consent was obtained. Prior Anticoagulants: The patient has taken no previous anticoagulant or antiplatelet agents. After reviewing the risks and benefits, the patient was deemed in satisfactory condition to undergo the procedure. After I obtained informed consent, the scope was passed under direct vision. Throughout the procedure, the patient's blood pressure, pulse, and oxygen saturations were monitored continuously. The Duodenoscope was introduced through the anus and advanced to the cecum, identified by appendiceal orifice and ileocecal valve. The colonoscopy was performed without difficulty. The patient tolerated the procedure well. The quality of the bowel preparation was good. Scope In: 8:03:24 AM Scope Withdrawal Time 0 hours 6 minutes 0 seconds Scope Out: 8:11:57 AM Total Procedure Duration Time 0 hours 8 minutes 33 seconds Findings: The entire examined colon appeared normal on direct and retroflexion views. Impression: - The entire examined colon is normal on direct and retroflexion views. - No specimens collected. Recommendation: - Discharge patient to home. - Resume previous diet. - Continue present medications. - Repeat colonoscopy at age 49 for screening purposes. Procedure Code(s): --- Professional --- 83790, Colonoscopy, flexible; diagnostic, including collection of specimen(s) by brushing or washing, when performed (separate procedure) Diagnosis Code(s): --- Professional --- K62.5, Hemorrhage of anus and rectum CPT copyright 2017 [employer]. All rights reserved. The codes documented in this report are preliminary and upon rag room supervisor review may be revised to meet current compliance requirements. Rio Funk MD 07/11/2021 8:15:09 AM This report has been signed electronically. Number of Addenda: 0 Note Initiated On: 07/11/2021 7:37 AM
--- NOTE | 2021-07-11 08:16 | OP.CCLET_ITS ---
07/11/2021 Kristy Chairez [place] [id number] [address] Re : Colonoscopy procedure for Charlotte Fernandez Dear Dr. Chairez This procedure was performed on Sunday, July 11, 2021. My impressions and recommendations are as follows: Impressions : - The entire examined colon is normal on direct and retroflexion views. - No specimens collected. Recommendations : - Discharge patient to home. - Resume previous diet. - Continue present medications. - Repeat colonoscopy at age 49 for screening purposes. My findings are described in the full procedure note, which is enclosed. If I can be of further assistance, please feel free to contact me at Doctor phone number(s): , Work: . Sincerely, Rio Funk MD 07/11/2021 8:15:09 AM This report has been signed electronically.
[2021-07-11 08:20] VITALS: BP 125/89; BP 135/95; PULSE 80; RESP 18; O2SAT 94
[2021-07-11 08:25] VITALS: BP 135/95; BP 137/90; PULSE 86; RESP 18; O2SAT 98
[2021-07-11 08:32] VITALS: BP 135/95; BP 138/90; PULSE 90; RESP 18; TEMP 36.6; O2SAT 98
[2021-07-11 08:55] VITALS: BP 135/95
== END 2021-07-11 08:55 | disposition home or self-care (01) ==
LOC: EN 06:48 → AC 06:51
PROVIDERS: Anesthesiology; PCP Family Medicine; Referring Provider Family Medicine; Visit Provider Surgery
PROC: 0DJD8ZZ Inspection of Lower Intestinal Tract, Via Natural or Artificial Opening Endoscopic (ICD-10-PCS; CPT 45378; principal; 2021-07-11 07:55)
DX: K62.5 Hemorrhage of anus and rectum (principal); F41.9 Anxiety disorder, unspecified; F32.9 Major depressive disorder, single episode, unspecified; J45.909 Unspecified asthma, uncomplicated; F17.210 Nicotine dependence, cigarettes, uncomplicated; Z79.51 Long term (current) use of inhaled steroids; Z79.899 Other long term (current) drug therapy
CPT/HCPCS: 45378; 81025; J7120; J2405

== ENCOUNTER 2022-03-05 18:53 | Emergency (ER) | payer SELFPAY ==
[2022-03-05 18:54] VITALS: BP 194/108; PULSE 128; RESP 20; TEMP 36.9; O2SAT 96; BMI 57.5
--- NOTE | 2022-03-05 19:39 | EKG12_ITS ---
Test Reason : DYSRHYTHMIA Blood Pressure : / mmHG Vent. Rate : 080 BPM Atrial Rate : 080 BPM P-R Int : 134 ms QRS Dur : 080 ms QT Int : 380 ms P-R-T Axes : 034 025 -05 degrees QTc Int : 438 ms Normal sinus rhythm with sinus arrhythmia Normal ECG Confirmed by ANDREW ALLRED, JAKOB ([id number]), video editor MARCIE ANTUNEZ ([id number]) on 03/06/2022 11:41:31 AM Referred By: [place] Confirmed By:JAKOB MORALES MD
--- NOTE | 2022-03-05 19:41 | EDS_ITS ---
HPI History of Present Illness Chief Complaint: Anxiety Narrative Narrative: Patient presents with panic attack that she has had for the last hour and 15 minutes. She states she had past medical history of anxiety with panic attacks and used to take Lexapro and lorazepam. However, she no longer has health insurance and has not had these medications since August of last year, approximately 6 to 7 months ago. She was at work today, and began feeling her heart racing and became short of breath with chest tightness, typical of her previous panic attacks. She states she became lightheaded and needed to sit down. She denies any hallucinations or suicidal ideation. No other symptoms. [facility] Medical History Abrasion Alcohol use Anxiety Asthma BMI 50.0-59.9, adult Chest pain Chronic cholecystitis Depression Former smoker Injury of back PCOS (polycystic ovarian syndrome) Shortness of breath on exertion Wears glasses Home Medications hydroxyzine pamoate [Vistaril] 25 mg PO TID PRN #20 cap 03/05/22 [Rx Last Taken Unknown] Allergy/AdvReac Type Severity Reaction Status Date / Time No Known Allergies Allergy Verified 03/05/22 18:54 Surgical History History of esophagogastroduodenoscopy (EGD) History of laparoscopic cholecystectomy (~03/23/18) Social History Smoking Status: Current some day smoker tobacco type: cigarettes and e- cigarettes alcohol intake: current details: social substance use type: does not use caffeine: Yes what type of physical activity do you participate in: walking seatbelt use: always do you feel safe at home: Yes additional social history: Spouse Valeriy Shipley Patient works at [employer] for [employer] Narrative Constitutional: No fever, no chills. Clamminess. HEENT: No sore throat. No neck pain. No loss of vision. No rhinorrhea. Cardiovascular: Positive chest tightness, no chest pain. Positive palpitations. No pedal edema. Respiratory: No cough, positive shortness of breath. Abdominal: No abdominal pain. No nausea. No vomiting. Genitourinary: No dysuria. No hematuria. Musculoskeletal: No myalgias. No arthralgias. Neurologic: No headaches. No dizziness. No lightheadedness. Skin: No rash. No change in color. Psychiatric: No depression. No anxiety. EXAM Physical Exam Narrative Exam Narrative: Afebrile. Vital signs noted. HEENT: Normocephalic. Atraumatic. PERRL, EOMI. Neck soft and supple. No point tenderness or step off. Cardiovascular: Positive tachycardia. No murmurs, rubs, or gallops appreciated. Respiratory: No tachypnea. Lungs clear to auscultation bilaterally. Gastrointestinal: Abdomen soft, nontender, with normoactive bowel sounds. No rebound or guarding. Neurological: Awake. Alert. Nonfocal, nonlateralizing. Skin: No rash. Normal color. No pallor. Musculoskeletal: No pedal edema. Full range of motion extremities. Const Vital Signs: 03/05/22 18:54 03/05/22 22:11 Temperature 98.4 F Temperature Source Temporal Pulse Rate 128 H 99 Respiratory Rate 20 H 16 Blood Pressure 194/108 H 133/89 H Blood Pressure Mean 136 Pulse Ox 96 99 Oxygen Delivery Method Room Air MDM MDM MDM Narrative Medical decision making narrative: I do feel that the patient had more of a panic attack. She is feeling improved. She is tachycardic. EKG will be obtained along with CBC and CMP. I will also obtain a chest x-ray. She was given Vistaril. CBC shows white count slightly elevated 11.6, normal hemoglobin of 13.5, with normal platelet count of 200. CMP is grossly unremarkable. EKG demonstrates normal sinus rhythm with a sinus arrhythmia at 80 bpm, no acute STEMI. Chest x-ray interpreted by myself shows no acute process. Upon repeat examination after 25 mg of Vistaril orally, she feels improved. At this point in time, I feel she be discharged safely home with follow-up. I will write her prescription for Vistaril to take as needed for her anxiety/panic attacks. It was strongly suggested that she follow-up with psychiatry. She was told that benzodiazepines need to be regulated by one physician so she will not be getting a prescription for that. Her mother is at the bedside. Patient is comfortable with the plan. Disposition is discharged home in stable condition. Lab Data Attestation: I reviewed the patient's lab results. Labs: Laboratory Results - last 24 hr 03/05/22 03/05/22 19:51 19:51 WBC 11.6 H RBC 4.95 Hgb 13.5 Hct 42.8 MCV 86.5 MCH 27.3 MCHC 31.5 L RDW Std Deviation 42.9 RDW Coeff of [place]ac[place] 13.5 Plt Count 200 MPV 11.3 Immature Gran % (Auto) 0.700 Neut % (Auto) 72.2 H Lymph % (Auto) 20.8 [place] % (Auto) 5.1 Eos % (Auto) 0.8 Baso % (Auto) 0.4 Absolute Neuts (auto) 8.3 H Absolute Lymphs (auto) 2.40 Nucleated RBC % 0 Sodium 140 Potassium 3.6 Chloride 106 Carbon Dioxide 28.0 Anion Gap 6 BUN 9 Creatinine 0.93 Estim Creat Clear Calc 78.46 Est GFR (MDRD) Af Amer 93 Est GFR (MDRD) Non-Af 77 BUN/Creatinine Ratio 9.7 L Glucose 98 Calcium 9.4 Total Bilirubin 0.30 AST 33 ALT 46 Alkaline Phosphatase 78 Total Protein 7.9 Albumin 3.4 Globulin 4.5 H Albumin/Globulin Ratio 0.8 L Radiography Diagnostic Testing: Clinical Impression(s) from Imaging Studies Chest X-Ray 03/05/22 19:55 IMPRESSION: No radiographic evidence of acute cardiopulmonary disease. Electronically Signed: Audra Knight MD at 20:30 EDT , Discharge Plan Triage Chief Complaint: Anxiety ED Provider: Yaron Becerra Dx/Rx/DC Orders Clinical Impression: Anxiety, Panic attack Instructions: ED Anxiety Reaction, ED Panic Attack Prescriptions: New hydroxyzine pamoate [Vistaril] 25 mg capsule 25 mg PO TID PRN (Reason: anxiety) Qty: 20 RF: 0 Stand Alone Forms: ED Work / School Excuse Primary Care Provider: Kristy Chairez Referrals: Kristy Chairez MD [Primary Care Provider] - As soon as possible Disposition Disposition: Home, Self Care Discharge Date/Time: 03/05/22 22:12
[2022-03-05] MEDS: hydrOXYzine PAM 25 MG Capsule PO (19:53)
--- NOTE | 2022-03-05 19:55 | RAD_ITS ---
EXAM: XR CHEST, 1 VIEW CLINICAL INDICATION: Palpitations, Shortness of Breath TECHNIQUE: Frontal view of the chest. This report was created using [employer] report generation technology. COMPARISON: July 27, 2012. FINDINGS: LUNGS AND PLEURAL SPACES: Unremarkable. No consolidation or edema. No pneumothorax. No effusion. HEART: Unremarkable. Cardiac silhouette not enlarged. MEDIASTINUM: Central airways and mediastinal contour are unremarkable. BONES/JOINTS: Unremarkable. SOFT TISSUES: Unremarkable. RAD/Chest 1 View (Portable) IMPRESSION: No radiographic evidence of acute cardiopulmonary disease. Electronically Signed: Audra Knight MD at 20:30 EDT ,
[2022-03-05 20:01] LABS: Absolute Neutrophil Count 8.3 X10^3/uL (2.0-7.7); Basophil# 0.05 X10^3/uL; Basophil% 0.4 % (0-1); Eosinophil# 0.09 X10^3/uL; Eosinophils% 0.8 % (0-5); Hematocrit 42.8 % (37-47); Hemoglobin 13.5 g/dL (12.0-15.0); Lymphocyte % 20.8 % (19-41); Mean Corp Hgb Conc 31.5 g/dL (32-36); Mean Corpuscular Hgb 27.3 pg (27.0-32.0); Mean Corpuscular Volume 86.5 fL (81-99); Mean Platelet Vol. 11.3 fl (6.2-12.0); Monocyte# 0.59 X10^3/uL; Monocyte% 5.1 % (0-10); NRBC Flagged by Analyzer 0 % (0-5); Neutrophil # 8.34 X10^3/uL (2.7-7.7); Neutrophil % 72.2 % (47-70); Platelet Count 200 K/mm3 (150-450); RBC Distribution Width CV 13.5 % (11.6-14.6); RBC Distribution Width SD 42.9 fl (35.1-43.9); Red Blood Count 4.95 M/mm3 (4.2-5.4); White Blood Count 11.6 K/mm3 (4.4-11.0)
[2022-03-05 20:17] LABS: ALB/GLOB Ratio 0.8 RATIO (0.9-2.4); AST(SGOT) 33 U/L (15-37); Alanine Aminotransfer ALT/SGPT 46 U/L (13-56); Albumin, Serum 3.4 g/dL (3.2-5.0); Alkaline Phosphatase 78 U/L (45-117); Anion Gap 6 (5-15); BUN 9 mg/dL (7-18); BUN/Creat Ratio 9.7 RATIO (10-20); Calcium,Total 9.4 mg/dL (8.5-10.1); Chloride 106 mmol/L (98-107); Creatinine, Serum 0.93 mg/dL (0.55-1.02); EST Glomerular Filtration Rate 77 mL/min (>60); Est Glom Filt Rate - Afr Amer 93 mL/min (>60); Estimated Creatinine Clearance 78.46 ml/min; Globulin 4.5 g/dL (2.2-4.2); Glucose 98 mg/dL (74-106); Potassium 3.6 mmol/L (3.5-5.1); Protein, Total 7.9 g/dL (6.4-8.2); Sodium Level 140 mmol/L (136-145)
[2022-03-05 22:11] VITALS: BP 133/89; PULSE 99; RESP 16; O2SAT 99
== END 2022-03-05 22:12 | disposition home or self-care (01) ==
LOC: ED 19:57
PROVIDERS: Emergency Provider Emergency Medicine; PCP Family Medicine; Visit Provider Emergency Medicine
DX: F41.0 Panic disorder [episodic paroxysmal anxiety] (principal); I49.8 Other specified cardiac arrhythmias; F17.210 Nicotine dependence, cigarettes, uncomplicated; Z79.899 Other long term (current) drug therapy; J45.909 Unspecified asthma, uncomplicated
CPT/HCPCS: 71045; 80053; 85025; 93005; 99284; A4216

== ENCOUNTER → 2022-07-27 | Outpatient (CLI) | payer OTHER, SELFPAY ==
--- NOTE | 2022-07-27 09:13 | US_ITS ---
STUDY: ULTRASOUND BREAST - RIGHT REASON FOR EXAM: Female, 27 years old. Palpable lump in the right breast. TECHNIQUE: Axial and longitudinal images of the RIGHT breast were performed with a high resolution ultrasound transducer. # OF IMAGES: 11 COMPARISON: Comparison is made with prior mammogram done earlier today. FINDINGS: RIGHT Breast: The palpable abnormality corresponds to a 3.7 cm x 1.5 cm what appears to be edematous glandular tissue. There is retroareolar ductal dilatation. US/Breast Limited Unilateral IMPRESSION: The palpable abnormality corresponds with 3.7 cm x 1.5 cm and heterogeneous appearance of breast tissue just deep to the skin at the 2 o''clock position in the breast at 6 cm from the nipple. This may represent edematous tissue although biopsy recommended. ASSESSMENT CATEGORY: BIRADS Category 4: Suspicious - Biopsy Should Be Considered. A letter regarding these results will be sent to the patient by the facility within 30 days. Electronically Signed: Quinton Hu MD at 12:30 EDT ,
--- NOTE | 2022-07-27 09:13 | BI_ITS ---
MAMMOGRAPHY - BILATERAL DIAGNOSTIC REASON FOR EXAM: Female, 27 years old. Palpable right breast lump medial to the nipple. PERTINENT HISTORY: Non-contributory. TECHNIQUE: Digital bilateral breast rosa maria (3D mammographic acquisition) in the CC and MLO projections. 2-D mediolateral oblique (MLO) and craniocaudad (CC) views of both breasts were obtained. CAD: Full Field Digital Mammography with Computer Added Detection was performed. COMPARISON: None. Baseline examination. FINDINGS: Breast Composition: There are scattered areas of fibroglandular density. There are no dominant masses or suspicious calcifications. No other significant abnormalities are identified. BI/DIAG MAMM W/CAD, BILAT IMPRESSION: Negative diagnostic mammogram. With the patient''s history of a palpable lump in the medial aspect of the right breast, correlation with ultrasound is recommended. ASSESSMENT CATEGORY: BIRADS Category 0: Incomplete. Need additional imaging evaluation. A letter regarding these results will be sent to the patient by the facility within 30 days. Approximately 10% of breast cancers are not detected by mammography. A normal mammogram should not delay biopsy of a clinically suspicious abnormality. Electronically Signed: Quinton Hu MD at 12:22 EDT ,
== END | disposition home or self-care (01) ==
LOC: OPBI 09:10
PROVIDERS: PCP Family Medicine; Referring Provider Obstetrics & Gynecology; Visit Provider Obstetrics & Gynecology
DX: N63.10 Unspecified lump in the right breast, unspecified quadrant (principal)
CPT/HCPCS: 76642; 77062; 77066; G0279

== ENCOUNTER 2022-08-21 10:29 | Day surgery (SDC) | payer OTHER, SELFPAY ==
[2022-08-21] VITALS (7 sets, daily range): BP systolic 113–160; BP diastolic 72–102; PULSE 72–87; RESP 16–18; TEMP 36.1–36.6; O2SAT 96–98; BMI 54.1
--- NOTE | 2022-08-21 | BRBX_PTH ---
PATIENT: DIPIKA ALTAMIRANO LOC: [facility] [place][id number] AGE/SX: 27 ROOM: RE08/21/[address]: Dr. Rio Funk MD : 1995 BED: DIS: 08/21/2022 SPEC #: [id number] RECD: 08/21/22 14:38 STATUS: GRACIELA NEAL #: [id number] LEFTY: 08/21/22 00:[address]: Rio Funk DEPT: SURGICAL PATHOLOGY RECD BY: Sean Romano ENTERED: 08/21/22 14:39 SP TYPE: BREAST BX OTHR DR: Dr. Kristy Chairez MD Tissues: Right breast, NOS Procedures: Surgery Specimen Level IV HEADER OPERATION: Excisional breast biopsy PRE-OP DIAGNOSIS: Right breast mass TISSUE SUBMITTED: Right breast mass MICROSCOPIC DIAGNOSIS Right breast mass, excision: Organizing fat necrosis. Focal benign duct ectasia. No evidence of malignancy. AM:lan 08/25/2022 MICROSCOPIC DESCRIPTION Slides are reviewed. GROSS DESCRIPTION Received in fixative is one container labeled with the patient's name and designated right breast. The specimen consists of an irregular fragment of unoriented noble-pink fibrofatty tissue measuring 6 x 4 x 2 cm and weighing 24.3 gm. The specimen is inked and serially sectioned. Serial sections reveal chalky, yellow cut surfaces. No distinct mass lesion is identified. Needle Control Cheniller sections are submitted in five cassettes. / AM:lan 08/24/2022 TC:5 CPT: 16742
[2022-08-21 11:03] LABS: Internal QC Validated? YES +Cl - CLEAR BKGD; Pregnancy, Urine Negative Negative
[2022-08-21] MEDS: Lactated Ringers 1,000 ML 15 ML IV (11:06)
--- NOTE | 2022-08-21 11:09 | PCM.HP.BLA ---
History and Physical Date of Admission: 08/21/22 Intake Vital Signs ? 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 07/16/22 [History Confirmed 08/05/22] PFSH Medical History? Abrasion Alcohol use Anxiety Asthma BMI 50.0-59.9, adult Chest pain Chronic cholecystitis Depression Former smoker Injury of back PCOS (polycystic ovarian syndrome) Shortness of breath on exertion Wears glasses Surgical History? History of esophagogastroduodenoscopy (EGD) History of laparoscopic cholecystectomy (~03/23/18) Social History? Smoking Status:? Current some day smoker tobacco type: cigarettes and e-cigarettes alcohol intake:? current details:? social substance use type:? does not use caffeine:? Yes what type of physical activity do you participate in:? walking seatbelt use:? always do you feel safe at home:? Yes additional social history:? Spouse Valeriy Shipley Patient works at [employer] for [employer] ? ? Female Reproductive History Menstrual Ab spontaneous: 1 HPI HPI HPI: Patient is a 27-year-old female here with a breast mass on the right.? Patient says that this popped up about a month ago.? Patient reports some mild discomfort in this area.? There is no nipple discharge.? No family history of breast cancer. ROS General General: No weight change, appetite, fatigue, colon cancer, breast cancer or weakness HEENT HEENT: No difficulty swallowing, eye injury, eye surgery, swollen glands or hoarseness Endo Endocrine: No thyroid disease, diabetes mellitus, thyroid cancer, Hair loss, heat intolerance or cold intolerance Skin Skin: No rash or changing moles Breast Breast: Yes right breast lump and abnormal mammogram; No left breast lump, nipple discharge, breast pain, abnormal US or breast enlargement Musc Musculoskeletal: No back problems, arthritis, rheumatoid arthritis, gout or joint pain Cardio Cardiovascular: No murmur, pacemaker, heart disease, atrial fibrillation, high blood pressure, heart attack, heart stent, palpitations, shortness of breat with exertion or chest pain Psych Psychiatric: Yes depression and anxiety; No hearing voices Resp Respiratory: Yes shortness of breath, No sleep apnea, No cough, No COPD, Yes asthma, No emphysema and No wheezing Gastro Gastrointestinal: No abdominal pain, No nausea or vomiting, No diarrhea, No constipation, No blood in stool, No acid reflux, No hemorrhoids, No ulcers, No gallbladder problem and No black,tarry stools Raúl Hematologic: No blood thinners, No blood disorders, No bleeding, No anemia and No blood clots Neuro Neurologic: No system reviewed and no additional complaints, except as documented, No as per HPI, No abnormal gait, No abnormal hearing, No abnormal movements, No abnormal speech, No behavioral changes, No burning sensations, No confusion, No convulsions, No disequilibrium, No dizziness, No localized weakness, No frequent falls, No headache(s), No lack of coordination, No loss of vision, No memory loss, No numbness, No other visual disturbances, No radicular pain, No restless legs, No sensory deficit, No syncope, No tingling, No tremor(s), No weakness and No other Exam Const General: cooperative Orientation: alert and oriented x3 HENMT Head: normal to inspection Neck Neck: normal visual inspection and full ROM Chest Chest palpation & inspection: normal inspection of the chest Breast Palpation: Yes breast mass lrb: Right Resp Effort & Inspection: normal respiratory effort Auscultation: clear to auscultation bilaterally Cardio Rate: regular rate Rhythm: regular rhythm GI Inspection: non-distended Palpation: soft and nontender Skin General: no rashes or lesions noted Neuro General: patient alert and patient oriented x3 Extrem General: full ROM Psych Appearance: grossly normal Mental Status: mental status grossly normal Assessment and Plan Assessment and Plan (1) Breast mass, right: ?Status:?Acute ?Plan: The patient had an ultrasound of this right breast mass which is palpable and it showed a BI-RADS 4 lesion recommending biopsy.? The patient is very scared of needles and would like this done under anesthesia so I offered her excisional biopsy to both remove the mass and be able to perform the biopsy under anesthesia.? I will perform an excisional biopsy and I discussed this with her in detail.? I discussed the risks including not limited to bleeding, infection, need for further surgery or axillary biopsy.? Patient understands all the risks and is willing to proceed. Rio Funk MD Pager: [facility] [address] [place] [address] [address] [place] [address] Office: I have examined the patient and the H&P has been reviewed. There are no clinical changes since date of exam.
[2022-08-21] MEDS: Bupivacaine 0.25% 30 ML Vial (11:30)
--- NOTE | 2022-08-21 12:20 | PCM.OPRPT ---
Report of Operation Date of Procedure: 08/21/22 Pre-Operative Diagnosis: Right breast mass Post-Operative Diagnosis: Right breast mass Surgery/Procedure Performed:: Excisional biopsy of right breast mass Specimen's removed: Right breast mass Description of Procedure: Patient was brought back the operating and MAC anesthesia was induced. The right breast was prepped and draped in usual sterile fashion. An area over the mass was injected with local anesthetic and then incised with a scalpel. Electrocautery was used to raise flaps and the mass was removed using electrocautery dissection. The cavity was irrigated and suctioned dry and electrocautery was used to obtain hemostasis. The cavity was irrigated and suction was more. The incision was closed with interrupted 3-0 Vicryl suture as well as running 4-0 Monocryl suture. Dermabond glue was then applied. Patient was awoken taken to PACU in stable condition. Admit VTE Documentation VTE Mechan Device Prophylaxis: SCD's
--- NOTE | 2022-08-21 12:22 | DCINST_ITS ---
Discharge Instructions Procedure Breast Surgery Diet Discharge Diet: No restrictions Activity Discharge Activity: May Not Drive (for 2-3 days or while taking narcotic pain medications.) and May Shower May shower in (days): 1 Lifting Restrictions: 15 lbs for 1 week Dressing / Incision Call your doctor if your incision/area has: Continuous Slow Oozing, Sudden Increased Bleeding, Increased Pain/ Swelling, Increased Redness, Foul Smelling Discharge and Swelling at the incision site Call your doctor if you observe: Fever of 101 or Higher Suture Line Care: Avoid Pulling/Pushing and Avoid Pinching/Bending Cleanse incision/area with: Soap & Water Follow Up Care Please Follow Up With: Rio Funk MD When: Please call to schedule 2 week follow up appointment. [phone] Test Results: Test results from this visit will be discussed in further detail at your follow- up appointment, if applicable. Discharge Plan Admission Attending Provider: Rio Funk Primary Care Provider: Kristy Chairez Instructions Additional Instructions / Restrictions: Ibuprofen and Tylenol for pain, oxycodone if needed Discharge Orders/Prescriptions Prescriptions: New oxycodone 5 mg tablet 5 - 10 mg PO Q6H PRN (Reason: pain) 5 Days Qty: 20 0RF Referrals / Follow Up: Kristy Chairez MD [Primary Care Provider] - Disposition Disposition (needs filled in before D/C Order can be placed): Home, Self Care
== END 2022-08-21 13:21 | disposition home or self-care (01) ==
LOC: SDC 10:32 → AC 10:32
PROVIDERS: Anesthesiology; PCP Family Medicine; Referring Provider Surgery; Visit Provider Surgery
PROC: (CPT 19101; principal; 2022-08-21 11:45)
DX: N63.10 Unspecified lump in the right breast, unspecified quadrant (principal); E28.2 Polycystic ovarian syndrome; J45.909 Unspecified asthma, uncomplicated; Z87.891 Personal history of nicotine dependence
CPT/HCPCS: 19101; 00400; 81025; 88305; J7120; J2405

== ENCOUNTER 2023-10-25 11:01 | Emergency (ER) | payer BC, SELFPAY ==
[2023-10-25 11:02] VITALS: BP 142/93; PULSE 71; RESP 14; TEMP 36.2; O2SAT 99; BMI 51.8
--- NOTE | 2023-10-25 11:18 | ED.VIS.GI ---
HPI HPI - GI History of Present Illness Chief Complaint: Abd Pain Informant: patient and parent Narrative Narrative: Patient presents with nausea and vomiting since last night. No blood was seen. No diarrhea. She is not actually having abdominal pain. She also complains that there is been a lump on her abdomen ever since she had her gallbladder out about 3 years ago. It seems to be slowly getting bigger. But is not acutely bothering her. It does not hurt. It has never hurt. She also has a history of polycystic ovarian syndrome. But no lower pelvic pain. Her last menstrual cycle was about 3 weeks ago. No urinary symptoms. She does work at a [employer] and [employer] so she is around a lot of people but has no known specific sick contacts. She is not having cough or congestion or fevers. No myalgias. Her only acute symptoms are the nausea and vomiting. She also does send review of systems that for years she will get a cold feeling in her hands and feet if she sits for a long time. But this not going on now and is not acute. [facility] Medical History Anxiety Asthma BMI 50.0-59.9, adult Chronic cholecystitis Depression Former smoker PCOS (polycystic ovarian syndrome) Piercing Vapes nicotine containing substance Wears glasses no medical history Home Medications oxycodone 5 mg tablet 5 - 10 mg (1 - 2 x 5 mg) PO Q6H PRN pain 5 days #20 tabs 08/21/22 [Rx Last Taken Unknown] ondansetron 4 mg disintegrating tablet 4 mg PO Q8H PRN PRN Nausea #10 tabs 10/25/23 [Rx Last Taken Unknown] Allergy/AdvReac Type Severity Reaction Status Date / Time No Known Allergies Allergy Verified 10/25/23 11:02 Surgical History History of esophagogastroduodenoscopy (EGD) History of laparoscopic cholecystectomy (~03/23/18) Hx of colonoscopy Social History Smoking Status: Current every day smoker tobacco type: e-cigarettes alcohol intake: current details: social substance use type: does not use caffeine: Yes what type of physical activity do you participate in: walking seatbelt use: always do you feel safe at home: Yes additional social history: Spouse Valeriy Shipley Patient works at [employer] for [employer] ED ROS Narrative A complete review of systems was performed and is negative except as documented in the history of present illness. Some specific details below. Constitutional: No recent fevers or chills. No myalgias. EYE: No color change ENT: No difficulty swallowing. No swelling. No pain. No GERD. CV: No chest pain or palpitations. Respiratory: No dyspnea. No hemoptysis. No difficulty taking breaths. GI: Please see history of present illness. : No frequency dysuria or hematuria. Musculoskeletal: No recent trauma. No pains. Skin: No rash. Nondiaphoretic. Neuro: No weakness or numbness. Endocrine: No polyuria or polydipsia. EXAM Physical Exam Narrative Exam Narrative: CONSTITUTIONAL: Patient is nontoxic in appearance. The patient looks comfortable. HEENT: No notable trauma. Mucous membranes are still moist. No sinus tenderness. No indication of pain with swallowing. EYES: No conjunctival injection. No icterus CARDIOVASCULAR: Regular rate. Regular rhythm. No notable murmur. No JVD. RESPIRATORY: No respiratory distress. Breathing is unlabored. No wheezes. No rhonchi. No rales. No pain with a deep breath. GASTROINTESTINAL: Obese but not distended. Bowel sounds are normal. No tenderness. No guarding. No rebound. She does have a slightly swollen area just to the right of the region of the rectus abdominis muscles above the umbilicus. It is not part of the umbilicus. It easily reduces. It does come out a little bit with a strain. But there is no tenderness whatsoever. I believe this likely is a spigelian hernia but it is not causing her symptoms and can be dealt with in the future. I do not think is the cause of her symptoms today GENITOURINARY: No tenderness over the bladder. No CVA tenderness. MUSCULOSKELETAL: Atraumatic. No peripheral edema. NEUROLOGICAL: Patient is alert and appropriate. No focal deficit noted. SKIN: No noted rashes. No diaphoresis. PSYCHIATRIC: Patient is calm. Mood is appropriate. Const Vital Signs: 10/25/23 11:02 Temperature 97.2 F L Temperature Source Temporal Pulse Rate 71 Respiratory Rate 14 Blood Pressure 142/93 H Blood Pressure Mean 109 Pulse Ox 99 Oxygen Delivery Method Room Air MDM MDM MDM Narrative Medical decision making narrative: Patient's CBC is overall normal. Patient electrolyte are overall normal other than minimal nonspecific elevation of glucose at 111. Patient liver unction test are overall normal. Patient's lipase is normal. Patient's serum was negative I checked the patient. Her nausea is markedly improved. We will let her finish her IV fluids. Her abdomen is still benign. We will get her home with Alessandro. We discussed reasons to return and she will follow-up with her surgeon regarding the hernia but I do not think this is an acute issue. Lab Data Attestation: I reviewed the patient's lab results. Labs: Laboratory Results - last 24 hr 10/25/23 11:20 WBC 9.8 RBC 4.71 Hgb 13.4 Hct 41.0 MCV 87.0 MCH 28.5 MCHC 32.7 RDW Std Deviation 42.5 RDW Coeff of Fracisco 13.3 Plt Count 212 MPV 10.6 Immature Gran % (Auto) 0.500 Neut % (Auto) 75.2 H Lymph % (Auto) 19.3 Grand % (Auto) 4.4 Eos % (Auto) 0.1 Baso % (Auto) 0.5 Absolute Neuts (auto) 7.4 Absolute Lymphs (auto) 1.89 Nucleated RBC % 0 Sodium 140 Potassium 3.9 Chloride 107 Carbon Dioxide 28.0 Anion Gap 5 BUN 11 Creatinine 0.79 Estim Creat Clear Calc 86.92 Est GFR (MDRD) Af Amer 111 Est GFR (MDRD) Non-Af 92 BUN/Creatinine Ratio 14.0 Glucose 111 H Calcium 8.6 Total Bilirubin 0.50 AST 22 ALT 21 Alkaline Phosphatase 63 Total Protein 7.8 Albumin 3.3 Globulin 4.5 H Albumin/Globulin Ratio 0.7 L Lipase 22 Serum , Qual NEGATIVE Discharge Plan Triage Chief Complaint: Abd Pain ED Provider: Yimi Rome Dx/Rx/DC Orders Clinical Impression: History of polycystic ovarian syndrome, Nausea & vomiting, Spigelian hernia Instructions: ED Vomiting (Adult) Prescriptions: New ondansetron [ondansetron] 4 mg tablet,disintegrating 4 mg PO Q8H PRN PRN (Reason: Nausea) Qty: 10 0RF No Action oxycodone 5 mg tablet 5 - 10 mg PO Q6H PRN (Reason: pain) 5 Days Qty: 20 0RF Primary Care Provider: Care Physician,No Primary Referrals: Kristy Chairez MD [Med Staff - Grinder Set Up Operator] - 3-5 Days if not improving Disposition Disposition: Home, Self Care
[2023-10-25 11:26] LABS: Absolute Lymphocyte Count 1.89 X10^3/uL (0.83-4.51); Absolute Neutrophil Count 7.4 X10^3/uL (2.0-7.7); Basophil# 0.05 X10^3/uL; Basophil% 0.5 % (0-1); Eosinophil# 0.01 X10^3/uL; Eosinophils% 0.1 % (0-5); Hemoglobin 13.4 g/dL (12.0-15.0); Lymphocyte # 1.89 X10^3/ul (0.83-4.51); Lymphocyte % 19.3 % (19-41); Mean Corp Hgb Conc 32.7 g/dL (32-36); Mean Corpuscular Hgb 28.5 pg (27.0-32.0); Mean Platelet Vol. 10.6 fl (6.2-12.0); Monocyte# 0.43 X10^3/uL; Monocyte% 4.4 % (0-10); NRBC Flagged by Analyzer 0 % (0-5); Neutrophil # 7.37 X10^3/uL (2.7-7.7); Neutrophil % 75.2 % (47-70); Platelet Count 212 K/mm3 (150-450); RBC Distribution Width CV 13.3 % (11.6-14.6); RBC Distribution Width SD 42.5 fl (35.1-43.9); Red Blood Count 4.71 M/mm3 (4.2-5.4); White Blood Count 9.8 K/mm3 (4.4-11.0)
[2023-10-25] MEDS: 0.9% Normal Saline (1000mL) 1,000 ML 1000 ML IV (11:27)
[2023-10-25] MEDS: Ondansetron 4 MG/2 ML Vial IV (11:27)
[2023-10-25 11:44] LABS: ALB/GLOB Ratio 0.7 RATIO (0.9-2.4); AST(SGOT) 22 U/L (15-37); Alanine Aminotransfer ALT/SGPT 21 U/L (13-56); Albumin, Serum 3.3 g/dL (3.2-5.0); Alkaline Phosphatase 63 U/L (45-117); Anion Gap 5 (5-15); BUN 11 mg/dL (7-18); Calcium,Total 8.6 mg/dL (8.5-10.1); Chloride 107 mmol/L (98-107); Creatinine, Serum 0.79 mg/dL (0.55-1.02); EST Glomerular Filtration Rate 92 mL/min (>60); Est Glom Filt Rate - Afr Amer 111 mL/min (>60); Estimated Creatinine Clearance 86.92 ml/min; Globulin 4.5 g/dL (2.2-4.2); Glucose 111 mg/dL (74-106); Lipase 22 U/L (13-75); Potassium 3.9 mmol/L (3.5-5.1); Protein, Total 7.8 g/dL (6.4-8.2); Sodium Level 140 mmol/L (136-145)
[2023-10-25 11:53] LABS: Internal QC Validated? YES +Cl - CLEAR BKGD; Pregnancy, Serum, hCG Quali. NEGATIVE Negative
--- OUTSIDE RECORDS SUMMARY | 2023-10-25 11:59 | XMS RPT_ITS | CCD ---
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 Name Role Phone Griselda Villafuerte MD Unavailable Kristy Chairez Primary Care Provider Kristy Chairez Primary Care Provider [phone] Kristy Chairez MD Primary Care Provider KRISTY CHAIREZ Primary Care Unavailable KRISTY CHAIREZ Primary Care Unavailable KRISTY CHAIREZ Primary Care Physician IRIS KATHLEEN MD Attending Unavailable KRISTY CHAIREZ Primary Care Unavailable Unavailable Primary Care Provider UnavailDEL [employer] Unavailable Allergies Allergy Classification Reported Allergen(s) Allergy Type Date of Onset Reaction(s) Facility (5 sources) Seasonal allergy; Translations: [SEASONAL ALLERGIES] Allergy to substance 1 Other: See Comments [facility] Work Phone: Medications Current Medications Medication Drug Class(es) Dates Sig (Normalized) Sig (Original) amoxicillin 875 mg / clavulanate 125 mg oral tablet (1 source) Penicillin-class Antibacterial Start: 01-28-2022 End: 02-04-2022 take 1 tablet by mouth twice daily amoxicillin-clav ulanic acid (AUGMENTIN) 875-125 mg per tablet Take 1 tablet by mouth twice daily for 7 days. 14 tablet 0 01/28/2022 02/04/2022 Active Completed/Discontinued Medications Medication Drug Class(es) Dates Sig (Normalized) Sig (Original) [id number] 200 actuat albuterol 0.09 mg/actuat metered dose inhaler (8 sources) beta2-Adrenergic Agonist Start: 08-23-2017 take 2 puff(s) by inhalation every four hours as needed albuterol HFA (PROAIR HFA) 90 mcg/actuation inhaler Indications: URI with cough and congestion , Mild intermittent asthma with acute exacerbation Inhale 2 Puffs as instructed every 4 hours as needed. 1 Inhaler 0 11/22/2018 Active Problems Active Problems Problem Classification Problem Date Documented Da te Episodic/Chronic Immunizations and screening for infectious disease (1 source) Contact with or exposure to other viral diseases; Translations: [Exposure to COVID-19 virus] Episodic Other endocrine disorders (1 source) Polycystic ovaries; Translations: [Polycystic ovarian syndrome] Onset: 08-02-2017 08-02-2017 Chronic Other endocrine disorders (4 sources) Polycystic ovary syndrome; Translations: [Polycystic ovarian syndrome] Onset: 08-06-2011 08-06-2011 Chronic Other nutritional; endocrine; and metabolic disorders (1 source) Body mass index (BMI) 45.0-49.9, adult; Translations: [Body mass index (BMI) 45.0-49.9, adult] Onset: 08-02-2017 08-02-2017 Chronic Other nutritional; endocrine; and metabolic disorders (4 sources) Morbid obesity; Translations: [Morbid (severe) obesity due to excess calories] Onset: 05-02-2015 05-02-2015 Chronic Other upper respiratory infections (1 source) Acute upper respiratory infection; Translations: [Acute upper respiratory infection, unspecified] Episodic Otitis media and related conditions (1 source) Acute left otitis media; Translations: [Otitis media, unspecified, left ear] Episodic Residual codes; unclassified (2 sources) Treatment not available; Translations: [Procedure and treatment not carried out for other reasons] Episodic Past or Other Problems Problem Classification Problem Date Documented Da te Episodic/Chronic Viral infection (1 source) Disease caused by 2019-nCoV Onset: 12-24-2022 Results Test Name Value Interpretation Reference Range Facil ity Vital Signs Date Time Vital Sign Value Performing Clinician Faci dimitry 11-21-2022 08:52-0500 Body temperature 96.8 [degF] IRIS KATHLEEN MD [facility] 11-21-2022 08:52-0500 Body weight 138 kg IRIS KATHLEEN MD [facility] 11-21-2022 08:52-0500 Diastolic Blood Pressure Non-Invasive 93 1 IRIS KATHLEEN MD [facility] 11-21-2022 08:52-0500 Heart rate 72 /min IRIS KATHLEEN MD [facility] 11-21-2022 08:52-0500 Respiratory rate 18 /min IRIS KATHLEEN MD [facility] 11-21-2022 08:52-0500 Systolic Blood Pressure Non-Invasive 154 1 IRIS KATHLEEN MD [facility] 08-26-2022 08:21-0400 Body temperature 98.01 [degF] Stephany Del Valle EQUIPMENT CLEANER AND TESTER.PHLEBOTOMIST Work Phone: [facility] 08-26-2022 08:21-0400 Body weight 140.98 kg Stephany Del Valle EQUIPMENT CLEANER AND TESTER.PHLEBOTOMIST Work Phone: [facility] 08-26-2022 08:21-0400 Diastolic blood pressure 84 mm[Hg] Stephany Del Valle EQUIPMENT CLEANER AND TESTER.PHLEBOTOMIST Work Phone: [facility] 08-26-2022 08:21-0400 Heart rate 97 /min Stephany Del Valle EQUIPMENT CLEANER AND TESTER.PHLEBOTOMIST Work Phone: [facility] 08-26-2022 08:21-0400 Respiratory rate 21 /min Stephany Del Valle EQUIPMENT CLEANER AND TESTER.PHLEBOTOMIST Work Phone: [facility] 08-26-2022 08:21-0400 SaO2% (BldA) [Mass fraction] 98 % Stephany Del Valle EQUIPMENT CLEANER AND TESTER.PHLEBOTOMIST Work Phone: [facility] 08-26-2022 08:21-0400 Systolic blood pressure 130 mm[Hg] Stephany Del Valle EQUIPMENT CLEANER AND TESTER.PHLEBOTOMIST Work Phone: [facility] 01-28-2022 12:05-0400 Body temperature 98.71 [degF] Florentino Underwoodbury EQUIPMENT CLEANER AND TESTER.PHLEBOTOMIST Work Phone: [facility] 01-28-2022 12:05-0400 Body weight 151.05 kg Florentino Rice EQUIPMENT CLEANER AND TESTER.PHLEBOTOMIST Work Phone: [facility] 01-28-2022 12:05-0400 Diastolic blood pressure 82 mm[Hg] Florentino Underwoodbury EQUIPMENT CLEANER AND TESTER.PHLEBOTOMIST Work Phone: [facility] 01-28-2022 12:05-0400 Heart rate 118 /min Florentino Rice EQUIPMENT CLEANER AND TESTER.PHLEBOTOMIST Work Phone: [facility] 01-28-2022 12:05-0400 Respiratory rate 18 /min Flornetino Rice EQUIPMENT CLEANER AND TESTER.PHLEBOTOMIST Work Phone: [facility] 01-28-2022 12:05-0400 SaO2% (BldA) [Mass fraction] 96 % Florentino Rice EQUIPMENT CLEANER AND TESTER.PHLEBOTOMIST Work Phone: [facility] 01-28-2022 12:05-0400 Systolic blood pressure 132 mm[Hg] Florentino Rice EQUIPMENT CLEANER AND TESTER.PHLEBOTOMIST Work Phone: [facility] 08-02-2017 12:32-0400 BMI (Body Mass Index) 49.69 kg/m2 Griselda Villafuerte MD [facility] 08-02-2017 12:32-0400 Body Temperature 97.4 [degF] Griselda Villafuerte MD [facility] 08-02-2017 12:32-0400 Body Temperature 97.39 [degF] Griselda Villafuerte MD [facility] 08-02-2017 12:32-0400 BP Diastolic 84 mm[Hg] Griselda Villafuerte MD [facility] 08-02-2017 12:32-0400 BP Systolic 132 mm[Hg] Griselda Villafuerte MD [facility] 08-02-2017 12:32-0400 Height 163.19 cm Griselda Villafuerte MD [facility] 08-02-2017 12:32-0400 Pulse (Heart Rate) 105 /min Griselda Villafuerte MD [facility] 08-02-2017 12:32-0400 Respiratory Rate 16 /min Griselda Villafuerte MD [facility] 08-02-2017 12:32-0400 Weight 132.36 kg Griselda Villafuerte MD [facility] Encounters Encounter Date Encounter Type Care Provider Facility Start: 12-24-2022 End: 12-25-2022 Emergency department patient visit DELAYLIN KATHLEEN Facility:[facility] Start: 12-24-2022 End: 12-24-2022 [facility] Procedures Date Procedure Procedure Detail Performing Clinician Start: 12-24-2022 EXPEDITED COVID19 Radha Kathleen Work Phone: Start: 12-24-2022 FLU BY PCR (EAST PROSPECT) Shea isaacs Yonathan Hever Work Phone: Plan of Treatment Date Care Activity Detail Author Start: 10-25-2022 DEPRESSION ASSESSMENT DEPRESSION ASSESSMENT [facility] Start: 08-26-2022 End: 09-09-2022 Influenza virus A and B RNA and SARS-CoV-2 (COVID-19) N gene panel - Respiratory specimen by ROSALINO with probe detection COVID WITH FLUA+B, ROUTINE Microbiology Routine URI, acute Exposure to COVID-19 virus Expected: 08/26/2022, Expires: 09/09/2022 [facility] Work Phone: Payers Date Payer Category Payer Self-pay 2022 Unknown [employer] P[employer] [id number] 2022-Present [phone] [address] [place] [address] PPO [id number] 1995 Unknown [id number] Unknown [id number] Social History Date Type Detail Facility Start: 03-23-2017 End: 08-26-2022 Tobacco smoking status NHIS Ex-smoker [facility] End: 01-21-2017 History of tobacco use Current smoker [facility] End: 01-21-2017 History of tobacco use Cigarette Smoker [facility] Start: 03-23-2017 End: 08-26-2022 Tobacco use and exposure Smokeless tobacco non-user [facility] Start: 01-28-2022 End: 08-26-2022 Alcohol intake Current non-drinker of alcohol (finding) [facility] Start: 1995 Sex Assigned At Female C [facility] Start: 01-18-2022 End: 01-28-2022 Exposure to SARS-CoV-2 (event) Not sure [facility] Work Phone: Start: 08-16-2022 End: 08-26-2022 Exposure to SARS-CoV-2 (event) Yes [facility] Tobacco smoking status No Smoking Status Entered [facility] Tobacco smoking status [facility] Tobacco smoking consumption unknown [facility] Start: 1995 Sex Assigned At Not on file C [facility] Functional Status Date Assessment Result Facility 11-21-2022 Functional Status N/A [facility] Mental Status Date Assessment Result Facility 11-21-2022 Mental Status Orientation Oriented x 4 [facility] 11-21-2022 Mental Status [facility] Clinical Notes 01-28-2022 to 11-21-2022 Virgie Gamble, EQUIPMENT CLEANER AND TESTER.[facility] - 11/12/2022 11:48 AM Lexi Henderson APRN.[facility] - 11/11/2022 11:28 AM ESTPatient Rosanna Del Valle APRN.[facility] - 08/26/2022 8:33 AM EDT Note Date & Type Note Facility 11-21-2022 Hospital Discharge instructions Patient Education 11/21/2022 10:27:42 Diarrhea, Viral (Child) (Adult) Viral Diarrhea (Adult) Diarrhea caused by a virus is often called viral gastroenteritis. Many people call it the stomach flu, but it has nothing to do with influenza. The virus that causes diarrhea affects the stomach and intestinal tract and usually lasts from 2 to 7 days. Diarrhea is the passing of loose, watery stools 3 or more times a day. Symptoms Along with diarrhea, you may have these symptoms: Abdominal pain and cramping Nausea and vomiting Loss of bowel control Fever and chills Bloody stools The danger from repeated diarrhea is dehydration. Dehydration is the loss of too much water and other fluids from the body without taking in enough to replace what is lost. Antibiotics are not effective in this illness, but there are a number of things you can do at home that will help. Home care Follow these home care measures: If symptoms are severe, rest at home for the next 24 hours or until you are feeling better. Wash your hands with soap and water or alcohol-based debt and budget counselor to prevent the spread of infection. Wash your hands after touching anyone who is sick. Wash your hands after using the toilet and before meals. Clean the toilet after each use. Food preparation: People with diarrhea should not prepare food for others. When preparing foods, wash your hands after touching anyone who is sick. Wash your hands after using cutting boards, countertops, and knives that have been in contact with raw food. Keep uncooked meats away from cooked and iedzu-tx-omz foods. Medicines: You may use acetaminophen or NSAIDS such as ibuprofen or naproxen to control fever unless another medicine was prescribed. If you have chronic liver or kidney disease or ever had a stomach ulcer or gastrointestinal bleeding, talk with your healthcare provider before using these medicines. Aspirin should never be used in anyone under 18 years of age who is ill with a fever. It may cause severe liver damage. Don't use NSAID medicines if you are already taking one for another condition (like arthritis) or are on aspirin (such as for heart disease or after a stroke). Anti-diarrhea medicine should be taken for this condition only if advised by your healthcare provider. Sometimes anti-diarrhea medicine can make your condition worse. If you have bloody diarrhea or fever, check with your healthcare provider before taking antidiarrheals. Diet: Water and clear liquids are important so you don't get dehydrated. Drink small amounts at a time, don't guzzle it down. If you are very dehydrated, sports drinks aren't a good choice. They have too much sugar and not enough electrolytes. In this case, commercially available products called oral rehydration solutions are best. Caffeine, tobacco, and alcohol can make the diarrhea, cramping, and pain worse. Don't force yourself to eat, especially if you have cramping, vomiting, or diarrhea. Don't eat large amounts at a time, even if you are hungry. It may make you feel worse. If you eat, avoid fatty, greasy, spicy, or fried foods. No dairy products, as they can make diarrhea worse. During the first 24 Hours (the first full day) follow the diet below: Beverages: Water, clear liquids, soft drinks without caffeine; karen bro, mineral water (plain or flavored), decaffeinated tea and coffee. Soups: Clear broth, consomm and bouillon Desserts: Plain gelatin, popsicles and fruit juice bars During the next 24 hours (the second day) you may add the following to the above if you have improved: Hot cereal, plain toast, bread, rolls, crackers Plain noodles, rice, mashed potatoes, chicken noodle or rice soup Unsweetened canned fruit like applesauce and bananas (avoid pineapple and citrus) Limit fat intake to less than 15 grams per day by avoiding margarine, butter, oils, mayonnaise, sauces, gravies, fried foods, peanut butter, meat, poultry and fish. Limit fiber; avoid raw or cooked vegetables, fresh fruits (except bananas) and bran cereals. Limit caffeine and chocolate. No spices or seasonings except salt. During the next 24 hours Gradually resume a normal diet, as you feel better and your symptoms improve. If at any time the diarrhea or cramping gets worse, go back to the simpler diet (above) or to clear liquids. Follow-up care Follow up with your healthcare provider, or as advised. Call if you are not improving within 24 hours or if the diarrhea lasts more than one week. This is especially true if you are in a high-risk group. For example, if you are very elderly, have a weak immune system (from cancer treatment for example), or you have inflammatory bowel disease (Crohn's or colitis). If a stool (diarrhea) sample was taken, you may call in 2 days (or as directed) for the results. When to seek medical advice Call your healthcare provider right away if any of the following occur: Increasing abdominal pain or constant lower right abdominal pain Continued vomiting (unable to keep liquids down) Frequent diarrhea (more than 5 times a day) Blood in vomit or stool (black or red color) Reduced oral intake Dark urine, reduced urine output Weakness, dizziness Drowsiness Fever of 100.4 F (38 C) oral or higher, or as directed by your healthcare provider New rash Call 911 Call 911 if any of the following occur: Trouble breathing Confused Severe drowsiness or trouble awakening Fainting or loss of consciousness Rapid heart rate Seizure Stiff neck [phone] [employer]. [address] [place] [address]. All rights reserved. This information is not intended as a substitute for professional medical care. Always follow your healthcare professional's instructions. Follow Up Care 11/21/2022 08:50:47 With:KRISTY CHAIREZ Address: [address] [place] [address] [phone] When:2-4 days [facility] 11-21-2022 Emergency department Discharge summary Discharge Instructions Thank you for allowing [facility] to assist you with your healthcare needs. The following is important discharge information regarding your hospital visit. Diagnosis from Today's Visit Knee pain/fever/diarrhea What to Do Next Instructions from Your Care Team No qualifying data available. Post Acute Orders No qualifying data available. You Need to Schedule the Following Appointments Follow Up with KRISTY CHAIREZ When Within 2-4 days Where: [facility] [address] [place] [address]- [phone] Allergies NKA Medications Please ask your primary doctor or pharmacist before taking any other medication not listed, including over the counter drugs, herbal medications, vitamins and or supplements as they may interact with your home medications. What How Much When Instructions Last Dose New ibuprofen (ibuprofen 200 mg oral capsule) 2 cap by mouth Every 4 hours as needed for for pain Duration: 5 Days Printed Prescription Please take this list to your next doctor s visit. Bring all medications you take, including over the counter medications, herbals and other supplements with you to your doctor s visit. Patients and families are reminded to discard old lists and to update any records with all medication providers or retail pharmacies. Education Materials Viral Diarrhea (Adult) Diarrhea caused by a virus is often called viral gastroenteritis. Many people call it the stomach flu, but it has nothing to do with influenza. The virus that causes diarrhea affects the stomach and intestinal tract and usually lasts from 2 to 7 days. Diarrhea is the passing of loose, watery stools 3 or more times a day. Symptoms Along with diarrhea, you may have these symptoms: Abdominal pain and cramping Nausea and vomiting Loss of bowel control Fever and chills Bloody stools The danger from repeated diarrhea is dehydration. Dehydration is the loss of too much water and other fluids from the body without taking in enough to replace what is lost. Antibiotics are not effective in this illness, but there are a number of things you can do at home that will help. Home care Follow these home care measures: If symptoms are severe, rest at home for the next 24 hours or until you are feeling better. Wash your hands with soap and water or alcohol-based debt and budget counselor to prevent the spread of infection. Wash your hands after touching anyone who is sick. Wash your hands after using the toilet and before meals. Clean the toilet after each use. Food preparation: People with diarrhea should not prepare food for others. When preparing foods, wash your hands after touching anyone who is sick. Wash your hands after using cutting boards, countertops, and knives that have been in contact with raw food. Keep uncooked meats away from cooked and tcoez-da-jvv foods. Medicines: You may use acetaminophen or NSAIDS such as ibuprofen or naproxen to control fever unless another medicine was prescribed. If you have chronic liver or kidney disease or ever had a stomach ulcer or gastrointestinal bleeding, talk with your healthcare provider before using these medicines. Aspirin should never be used in anyone under 18 years of age who is ill with a fever. It may cause severe liver damage. Don't use NSAID medicines if you are already taking one for another condition (like arthritis) or are on aspirin (such as for heart disease or after a stroke). Anti-diarrhea medicine should be taken for this condition only if advised by your healthcare provider. Sometimes anti-diarrhea medicine can make your condition worse. If you have bloody diarrhea or fever, check with your healthcare provider before taking antidiarrheals. Diet: Water and clear liquids are important so you don't get dehydrated. Drink small amounts at a time, don't guzzle it down. If you are very dehydrated, sports drinks aren't a good choice. They have too much sugar and not enough electrolytes. In this case, commercially available products called oral rehydration solutions are best. Caffeine, tobacco, and alcohol can make the diarrhea, cramping, and pain worse. Don't force yourself to eat, especially if you have cramping, vomiting, or diarrhea. Don't eat large amounts at a time, even if you are hungry. It may make you feel worse. If you eat, avoid fatty, greasy, spicy, or fried foods. No dairy products, as they can make diarrhea worse. During the first 24 Hours (the first full day) follow the diet below: Beverages: Water, clear liquids, soft drinks without caffeine; karen bro, mineral water (plain or flavored), decaffeinated tea and coffee. Soups: Clear broth, consomm and bouillon Desserts: Plain gelatin, popsicles and fruit juice bars During the next 24 hours (the second day) you may add the following to the above if you have improved: Hot cereal, plain toast, bread, rolls, crackers Plain noodles, rice, mashed potatoes, chicken noodle or rice soup Unsweetened canned fruit like applesauce and bananas (avoid pineapple and citrus) Limit fat intake to less than 15 grams per day by avoiding margarine, butter, oils, mayonnaise, sauces, gravies, fried foods, peanut butter, meat, poultry and fish. Limit fiber; avoid raw or cooked vegetables, fresh fruits (except bananas) and bran cereals. Limit caffeine and chocolate. No spices or seasonings except salt. During the next 24 hours Gradually resume a normal diet, as you feel better and your symptoms improve. If at any time the diarrhea or cramping gets worse, go back to the simpler diet (above) or to clear liquids. Follow-up care Follow up with your healthcare provider, or as advised. Call if you are not improving within 24 hours or if the diarrhea lasts more than one week. This is especially true if you are in a high-risk group. For example, if you are very elderly, have a weak immune system (from cancer treatment for example), or you have inflammatory bowel disease (Crohn's or colitis). If a stool (diarrhea) sample was taken, you may call in 2 days (or as directed) for the results. When to seek medical advice Call your healthcare provider right away if any of the following occur: Increasing abdominal pain or constant lower right abdominal pain Continued vomiting (unable to keep liquids down) Frequent diarrhea (more than 5 times a day) Blood in vomit or stool (black or red color) Reduced oral intake Dark urine, reduced urine output Weakness, dizziness Drowsiness Fever of 100.4 F (38 C) oral or higher, or as directed by your healthcare provider New rash Call 911 Call 911 if any of the following occur: Trouble breathing Confused Severe drowsiness or trouble awakening Fainting or loss of consciousness Rapid heart rate Seizure Stiff neck [phone] [employer]. [address] [place] [address], [place] [address]. All rights reserved. This information is not intended as a substitute for professional medical care. Always follow your healthcare professional's instructions. Additional Information VACCINATE! IT SAVES LIVES! Members of the community who have not yet received the COVID-19 vaccine and would like to receive it can visit one of [facility] vaccine clinics. There are many vaccine clinic locations within the [facility]. For locations and available times, please visit [email or web address]. It is important to note that some COVID mobile vaccine clinics are held outdoors and may be canceled in rainy or stormy conditions. To learn more about pediatric vaccinations (ages 5-11), we invite you to visit the [facility] webpage. [email or web address] To learn more about the COVID-19 vaccine, we invite you to visit the [facility] website for a list of frequently asked questions. [email or web address] [facility] Patient Portal Access Instructions: Stay connected with your healthcare team and access your personal medical information anytime with the [facility] Patient Portal. If you would like a full copy of your medical records please contact the [facility] Medical Records Department Wednesday through Wednesday between 8a.m. and 4:30p.m. Please follow the directions below to access the portal: 1.Access the email account you provided upon registration to the hospital.2.Look for an invitation email from [facility].3.Open the email and access the invitation link: Accept Invitation to [email or web address].Fill in the required workman to create your account. Sign into [email or web address] with your username and password that you created in the above steps to stay up to date. You can then view a summary of results, a summary of your visits, and the ability to download your summaries to your computer or send the information securely to a physician. Remember that your healthcare information is confidential, so carefully consider who you will allow to register on the [facility] Patient Portal for access to your information. You can also access the [facility] Patient Portal on the [employer]. Simply click on Health Records under Health Data and then click on the [employer] logo. HOW TO SAFELY DISPOSE OF PRESCRIPTION MEDICATIONS Please use one of the following methods to safely dispose of your unused medications. 1.Use a drug disposal kit: the drug disposal pouch allows you to safely discard your old and unused drugs. Ask your nurse to give you one when you are discharged.2.Visit a local take-back location: Many local pharmacies and police departments have programs that collect old and unwanted prescription drugs. Call your local pharmacy or go to http://HASH.TRADE TO REBATE/5M1El3n to find one close to you.3.Make use of household items: Use cat litter or old coffee grounds to dispose medications if other options are not available. Mix your drugs with these household products, seal them in an airtight container and throw it into the garbage. Call [facility]: [phone] to be sure your drugs can be disposed of in this way. Some medicines may require a different approach.4.Never flush your medications down the toilet. IF YOU HAVE BEEN PRESCRIBED AN OPIOIDS FOR PAIN If you have been prescribed an opioid (such as hydrocodone, oxycodone or morphine), it is critical to understand the possible side effects and risks of opioid pain medications. Even when taken as directed, opioids can have several side effects including: Tolerance, meaning you might need to take more of a medication for the same pain relief. Nausea, vomiting and/or constipation. Sleepiness, dizziness, dry mouth, confusion, depression or itching. Physical dependence, meaning you have withdrawal symptoms when a medication is stopped ? this can develop within a few days. KNOW YOUR RESPONSIBILITIES It is important to know exactly how much and how often to take the opioid pain medications you are prescribed. Never take opioids in higher amounts or more often than prescribed. Do not combine opioids with alcohol or other drugs that cause drowsiness, such as benzodiazepines, also known as benzos, including diazepam and alprazolam, muscle relaxants or sleep aids. Never sell or share prescription opioids. This is illegal. Store opioids in a secure place and out of reach of others (including children, family, friends and visitors). The last page(s) of this document has been signed and retained as a CHART COPY Signatures Patient Education Materials Diarrhea, Viral (Child) (Adult) Medication Leaflets My discharge plan and instructions have been reviewed and explained to me and I,CHARLOTTE MICHAELS understand my current condition and have read and understand these discharge instructions. I have received a written copy of the plan/instructions. If I have questions, I am aware that I should contact my doctor. Patient/Billing Rep Signature: Date/Time: Relationship to Patient: Witness Name/Signature: Date/Time: [facility] 11-21-2022 Note ORIGINAL EXAMINATION: THREE XRAY VIEWS OF THE RIGHT KNEE 11/21/2022 9:19 am COMPARISON: None. HISTORY: ORDERING SYSTEM PROVIDED HISTORY: Reason for Exam: Pain FINDINGS: There is no acute fracture or dislocation. Osseous mineralization is within normal limits. Joint spaces are maintained. No significant knee joint effusion is seen. No aggressive osseous lesions are noted. IMPRESSION: 1. No acute osseous abnormalities. Interpreted by: Ruslan Guadarrama DO Preliminary Report By: Ruslan Guadarrama DO Electronically signed By Ruslan Guadarrama DO Dictated Date: 11/21/2022 9:22:56 AM Prelim Date: 11/21/2022 9:24:02 AM Sign Date: 11/21/2022 9:24:02 AM Ordering Provider: [facility] 11-21-2022 Note ORIGINAL EXAMINATION: THREE XRAY VIEWS OF THE RIGHT KNEE 11/21/2022 9:19 am COMPARISON: None. HISTORY: ORDERING SYSTEM PROVIDED HISTORY: Reason for Exam: Pain FINDINGS: There is no acute fracture or dislocation. Osseous mineralization is within normal limits. Joint spaces are maintained. No significant knee joint effusion is seen. No aggressive osseous lesions are noted. IMPRESSION: 1. No acute osseous abnormalities. Interpreted by: Ruslan Guadarrama DO Preliminary Report By: Ruslan Guadarrama DO Electronically signed By Ruslan Guadarrama DO Dictated Date: 11/21/2022 9:22:56 AM Prelim Date: 11/21/2022 9:24:02 AM Sign Date: 11/21/2022 9:24:02 AM Ordering Provider: [facility] 11-12-2022 Note HNO ID: [id number] Author: Virgie Gamble APRN.CNP Service: ? Author Type: Nurse Practitioner Type: Progress Notes Filed: 11/12/2022 11:48 AM Note Text: This is an Express Care eVisit note for Charlotte Michaels eVrobit/Questionnaire reviewed The chief complaint for the visit - Patient presents with: Sinus Problem Recommendations/Treatment plan - See My Chart Message to patient Time spent <1 min Virgie Gamble APRN.CNP [facility] 11-12-2022 History of Present illness Narrative This is an Express Care eVisit note for Charoltte Michaels eVisit/Questionnaire reviewed The chief complaint for the visit - Patient presents with: Sinus Problem Recommendations/Treatment plan - See My Chart Message to patient Time spent <1 min Virgie Gamble APRN.CNP documented in this encounter [facility] 11-11-2022 Note HNO ID: [id number] Author: Kerri Henderson APRN.CNP Service: ? Author Type: Nurse Practitioner Type: Progress Notes Filed: 11/11/2022 11:50 AM Note Text: This is an Express Care eVisit note for Charlotte Micheals eVisit/Questionnaire reviewed The chief complaint for the visit - Patient presents with: Sinus Problem Recommendations/Treatment plan - See My Chart Message to patient. Patient would benefit from provider evaluation to further discuss symptoms/treatment options. Kerri eHnderson APRN.CNP I spent <5 minutes on this eVisit in chart review and coordination of care. [facility] 11-11-2022 History of Present illness Narrative This is an Express Care eVisit note for Charlotte Michaels eVisit/Questionnaire reviewed The chief complaint for the visit - Patient presents with: Sinus Problem Recommendations/Treatment plan - See My Chart Message to patient. Patient would benefit from provider evaluation to further discuss symptoms/treatment options. Kerri Henderson APRN.CNP I spent <5 minutes on this eVisit in chart review and coordination of care. documented in this encounter [facility] 08-26-2022 Influenza virus A and B RNA and SARS-CoV-2 (COVID-19) N gene panel ROSALINO+probe (Resp) COVID 19 RESULT: SARS-CoV-2 (Agent of COVID-19) Not Detected by RT-PCR or equivalent method. damian [id number] ([employer])_EUA This test was developed and its performance characteristics determined by [facility] [place]. This test has been authorized by FDA under an Emergency Use Authorization (EUA). This test has been validated in accordance with the FDA's Guidance Document Policy for Diagnostics Testing in Laboratories Certified to Perform High Complexity Testing under CLIA prior to Emergency use Authorization for Coronavirus Disease 2019 during the Public Health Emergency issued on December 23, 2019. Test performed by [facility], [facility] [place], [address], [place], [place] [address]. INFLUENZA A PCR: Negative for Influenza A by RT-PCR INFLUENZA B PCR: Negative for Influenza B by RT-PCR [facility] URI, acute- Primary Acute upper respiratory infections of unspecified site Exposure to COVID-19 virus [facility] Treatment not available- Primary Procedure not carried out for other reasons documented in this encounter [facility] Advance Directives No Advanced Directives Records FoundDocuments on File Type Date Recorded Patient Billing Rep Expl anation Advance Directive(s) 04/09/2017 1:17 PM Health Concerns Infection Onset Date Last Indicated Resolved Time COVID-19 Rule-Out 08/26/2022 08/26/2022 Infection Onset Date Last Indicated Resolved Time COVID-19 Rule-Out 12/24/2022 12/24/2022 12/24/2022 9:44 PM EST Summary Purpose Family History No Family History Records FoundNo Family History Records FoundNo Family History Records Found Additional Source Comments Source Comments (unrecognize d section and content) In the event this informatio n is protected by the Federal Confidentiality of Alcohol and Drug Abuse Patient Records regulations: The Federal rules restrict any use of the information to criminally investigate or prosecute any alcohol or drug abuse patient.[facility] event this information is protected by the Federal Confidentiality of Alcohol and Drug Abuse Patient Records regulations: The Federal rules restrict any use of the information to criminally investigate or prosecute any alcohol or drug abuse patient.[facility] the event this information is protected by the Federal Confidentiality of Alcohol and Drug Abuse Patient Records regulations: The Federal rules restrict any use of the information to criminally investigate or prosecute any alcohol or drug abuse patient.[facility] the event this information is protected by the Federal Confidentiality of Alcohol and Drug Abuse Patient Records regulations: The Federal rules restrict any use of the information to criminally investigate or prosecute any alcohol or drug abuse patient.[facility] the event this information is protected by the Federal Confidentiality of Alcohol and Drug Abuse Patient Records regulations: The Federal rules restrict any use of the information to criminally investigate or prosecute any alcohol or drug abuse patient.[facility] Reason for Visit (unrecogniz ed section and content) Reason Comments Sore Throat Cough, exposure to c ovid, rsv x 2 days Reason Comments Sinus Problem Care Teams (unrecognized sec tion and content) 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 Specialty Start Date End Date Kristy Chairez [address] [facility] [address] PCP - General Family Medicine 01/28/22 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 Specialty Start Date End Date Kristy Chairez MD [address] [place] [address] PCP - General Family Medicine 01/28/22 INFORMATION SOURCE (unrecogn ized section and content) DATE CREATED AUTHOR AUTHOR'S ORGANIZ ATION 12/03/2022 [facility] ([place]) DATE CREATED AUTHOR AUTHOR'S ORGANIZ ATION 01/01/2023 [facility] Care Team (unrecognized sect ion and content) Care Team Personnel Name: KRISTY CHAIREZ Member Role: Primary Care Physician Address: Address: [facility] [address] [place] [address] Name: Meghan Lozano AGRONOMY RESEARCH MANAGER Position: ED AGRONOMY RESEARCH MANAGER/CLS/MEDIC Member Role: ED AGRONOMY RESEARCH MANAGER Name: IRIS KATHLEEN MD Position: ED Physician Member Role: Attending Physician Address: Address: [facility] [address] [place], [place] [address] Name: SAIRA CARDOZA MD Position: Resident Member Role: Resident Address: Address: [address] [place] [address] Care Team Related Persons Name: BORIS LINN FOR RECORDS PERTAINING TO PATIENTS WHO ARE OR HAVE BEEN ENROLLED IN A CHEMICAL DEPENDENCY/SUBSTANCEABUSE PROGRAM, SOME INFORMATION MAY BE OMITTED. This clinical summary was aggregated from multiple sources. Caution should be exercised in using it in the provision of clinical care. This summary normalizes information from multiple sources, and as a consequence, information in this document may materially change the coding, format and clinical context of patient data. In addition, data may be omitted in some cases. CLINICAL DECISIONS SHOULD BE BASED ON THE PRIMARY CLINICAL RECORDS. [employer] provides no warranty or guarantee of the accuracy or completeness of information in this document.
== END 2023-10-25 12:30 | disposition home or self-care (01) ==
PROVIDERS: Emergency Provider Emergency Medicine; Visit Provider Emergency Medicine
DX: R11.2 Nausea with vomiting, unspecified (principal); K43.9 Ventral hernia without obstruction or gangrene; F17.290 Nicotine dependence, other tobacco product, uncomplicated
CPT/HCPCS: 80053; 83690; 84703; 85025; 96361; 96374; 99283; J7030; A4216; J2405

== ENCOUNTER 2024-02-29 11:40 | Emergency (ER) | payer SELFPAY ==
[2024-02-29 11:40] VITALS: BP 143/89; PULSE 90; RESP 14; TEMP 36.1; O2SAT 98
--- NOTE | 2024-02-29 12:59 | CT_ITS ---
STUDY: CT ABDOMEN AND PELVIS WITH CONTRAST REASON FOR EXAM: Female, 28 years old. Abdominal pain RADIATION DOSAGE (If Supplied By Facility): CTDIvol = ( 24 ) mGy, DLP = ( 1334 ) mGycm TECHNIQUE: Transaxial images were obtained through the abdomen and pelvis without oral contrast. 75 ml of Isovue-370 contrast was administered. Sagittal and coronal images were reconstructed. Individualized dose optimization techniques were used for this CT. COMPARISON: No relevant prior comparison study available FINDINGS: LOWER THORAX: The visualized lung bases are clear. The visualized portions of the heart and pericardium are within normal limits. GALLBLADDER / BILE DUCTS: The patient is status post cholecystectomy. There is no intrahepatic biliary duct dilatation. The common bile duct is normal in caliber. There are no calcified ductal stones. LIVER: The liver is low in density, consistent with fatty infiltration. The liver is otherwise within normal limits. There are no suspicious hepatic lesions. SPLEEN: The spleen is normal in size. PANCREAS: The pancreas is within normal limits. ADRENAL GLANDS: The adrenal glands are within normal limits. KIDNEYS / BLADDER: There are no renal or ureteral stones. There is no hydronephrosis. There are no focal renal lesions. The urinary bladder is partially distended and appears grossly unremarkable. STOMACH / BOWEL: Normal visualized stomach. There is no bowel obstruction or inflammation. The appendix is visualized and appears normal. There is a 13.4 x 10.4 x 7.5 cm fat-containing ventral hernia. There is no bowel containing hernia. PERITONEUM/RETROPERITONEUM: There is no abdominal or pelvic free air, free fluid or fluid collection. There is no abnormal soft tissue mass identified. There is no abdominal or pelvic lymphadenopathy. VESSELS: The aorta is normal in caliber. The IVC is unremarkable. BONES: There are no destructive osseous lesions. SOFT TISSUES: The visualized soft tissues are within normal limits. CT/Abdomen/Pelvis W IV Cont ONLY IMPRESSION: 13.4 x 10.4 x 7.5 cm fat-containing ventral hernia. Bowel containing hernia. No bowel obstruction or inflammation. Normal appendix. Normal kidneys. No hydronephrosis. Fatty liver. Electronically Signed: Russell Barnett MD at 13:50 EDT ,
[2024-02-29 13:00] LABS: Absolute Lymphocyte Count 1.91 X10^3/uL (0.83-4.51); Absolute Neutrophil Count 5.6 X10^3/uL (2.0-7.7); Basophil# 0.03 X10^3/uL; Basophil% 0.4 % (0-1); Eosinophil# 0.06 X10^3/uL; Eosinophils% 0.7 % (0-5); Hematocrit 40.9 % (37-47); Hemoglobin 13.4 g/dL (12.0-15.0); Lymphocyte # 1.91 X10^3/ul (0.83-4.51); Lymphocyte % 23.4 % (19-41); Mean Corp Hgb Conc 32.8 g/dL (32-36); Mean Corpuscular Hgb 28.2 pg (27.0-32.0); Mean Corpuscular Volume 86.1 fL (81-99); Mean Platelet Vol. 11.1 fl (6.2-12.0); Monocyte# 0.49 X10^3/uL; NRBC Flagged by Analyzer 0 % (0-5); Neutrophil # 5.63 X10^3/uL (2.7-7.7); Neutrophil % 69.1 % (47-70); Platelet Count 173 K/mm3 (150-450); RBC Distribution Width CV 13.5 % (11.6-14.6); RBC Distribution Width SD 42.1 fl (35.1-43.9); Red Blood Count 4.75 M/mm3 (4.2-5.4); White Blood Count 8.2 K/mm3 (4.4-11.0)
--- NOTE | 2024-02-29 13:00 | ED.VIS.GI ---
HPI HPI - GI History of Present Illness Chief Complaint: Abd Pain Narrative Narrative: 28-year-old female presenting with abdominal pain. She has history of hernias in her abdomen which are not new but are causing more pain recently. Patient lives in [facility] and recently had a workup there including a CT scan which showed the hernias. She states that she does not give any discharge instructions or surgeon to follow-up with. She was coming to visit her mother and started to have some abdominal pain which radiates from the right side adjacent to her hernias and into her right back. She does not have a gallbladder. She has had some nausea and vomited last night after eating mac & cheese but she has otherwise been able to eat. She states that her last workup was a couple of weeks ago. Patient is having yellow diarrhea which she states is sticky. She is not have any blood in her diarrhea. She has not had a fever. 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 Vapes nicotine containing substance Wears glasses Home Medications oxycodone 5 mg tablet 5 - 10 mg (1 - 2 x 5 mg) PO Q6H PRN pain 5 days #20 tabs 08/21/22 [Rx Last Taken Unknown] ondansetron 4 mg disintegrating tablet 4 mg PO Q8H PRN PRN Nausea #10 tabs 10/25/23 [Rx Last Taken Unknown] hydrocodone-acetaminophen 5-325mg 5mg-325mg 1 tab PO Q4H PRN PRN Pain 3 days #10 TABLETS 02/29/24 [Rx Last Taken Unknown] ondansetron 4 mg disintegrating tablet 4 mg PO Q8H PRN PRN Nausea #14 tabs 02/29/24 [Rx Last Taken Unknown] Allergy/AdvReac Type Severity Reaction Status Date / Time No Known Allergies Allergy Verified 02/29/24 11:41 Surgical History History of esophagogastroduodenoscopy (EGD) History of laparoscopic cholecystectomy (~03/23/18) Hx of colonoscopy Social History Smoking Status: Current every day smoker tobacco type: e-cigarettes alcohol intake: current details: social substance use type: does not use caffeine: Yes what type of physical activity do you participate in: walking seatbelt use: always do you feel safe at home: Yes additional social history: Spouse Valeriy Shipley Patient works at [employer] ROS ED Constitutional Constitutional ED: Denies chills, fever(s) or sweats Eyes Eyes: Denies blurry vision or change in vision ENT ENT ED: Denies ear pain or sore throat Cardiovascular Cardiovascular: Denies chest pain, palpitations or racing heartbeat Respiratory/Chest Respiratory/Chest: Denies cough, dyspnea or sputum Gastrointestinal Gastrointestinal: Reports abdominal pain, diarrhea, nausea and vomiting; Denies constipation Genitourinary Genitourinary ED: Denies dysuria, hematuria or urinary frequency Musculoskeletal Musculoskeletal: Denies arthralgias, myalgias or neck pain Integumentary Denies abscess, Abrasions or rash Neurologic Neurologic: Denies headache(s), paresthesias or weakness Psychiatric Psychiatric: Denies anxiety, depression, suicidal ideation or suicidal thoughts Endocrine Endocrinology: Denies polydipsia or polyuria EXAM Physical Exam Const Vital Signs: 02/29/24 11:40 02/29/24 13:40 Temperature 97 F L Temperature Source Temporal Pulse Rate 90 64 Respiratory Rate 14 16 Blood Pressure 143/89 H 126/84 H Blood Pressure Mean 107 98 Pulse Ox 98 98 Oxygen Delivery Method Room Air Room Air Positive well nourished HEENT Reports moist mucous membranes normocephalic and atraumatic Eyes PERRL and EOMs intact bilaterally Resp normal respiratory effort Cardio regular rate and regular rhythm GI GI Narrative: Tenderness to palpation over the right mid and upper abdomen on the right. There are 2 nonreducible hernias noted here. There was one in the right upper quadrant which is small and there is a larger one just beneath this. No skin changes. MDM MDM MDM Narrative Medical decision making narrative: Patient presenting with abdominal pain. This is not a new issue. She states she has had hernias for a long time and had them recently seen on CT. I was able to log into [employer] and I was able to find pertinent medical records available for review to compare to the patient's current lab/imaging/workup. And. She had 2 fat-containing hernias. We obtained lab work which was normal and included a CBC, CMP, lipase. Urinalysis was negative for infection. The CT scan we did today shows 1 hernia. The patient has been having pain in the same area which she feels is worse than it was before. She was given morphine twice here in the ED and I discussed the case with Dr. Funk who did her gallbladder. He stated that she could follow-up as an outpatient as needed. Patient was given Hibbs and Zofran for home. Return precautions discussed. Impression: 1. Abdominal pain 2. Fat-containing hernia Lab Data Attestation: I reviewed the patient's lab results. Labs: Laboratory Results - last 24 hr 02/29/24 02/29/24 12:45 12:50 WBC 8.2 RBC 4.75 Hgb 13.4 Hct 40.9 MCV 86.1 MCH 28.2 MCHC 32.8 RDW Std Deviation 42.1 RDW Coeff of Fracisco 13.5 Plt Count 173 MPV 11.1 Immature Gran % (Auto) 0.400 Neut % (Auto) 69.1 Lymph % (Auto) 23.4 Phelps % (Auto) 6.0 Eos % (Auto) 0.7 Baso % (Auto) 0.4 Absolute Neuts (auto) 5.6 Absolute Lymphs (auto) 1.91 Nucleated RBC % 0 Sodium 139 Potassium 3.2 L Chloride 107 Carbon Dioxide 30.0 Anion Gap 2 L BUN 6 L Creatinine 0.89 Estim Creat Clear Calc 125.03 Est GFR (MDRD) Af Amer 96 Est GFR (MDRD) Non-Af 80 BUN/Creatinine Ratio 6.8 L Glucose 93 Calcium 8.5 Total Bilirubin 0.40 AST 28 ALT 33 Alkaline Phosphatase 58 Total Protein 7.2 Albumin 3.2 Globulin 4.0 Albumin/Globulin Ratio 0.8 L Lipase 20 Urine Color Yellow Urine Clarity Cloudy Urine pH 5.0 Ur Specific [place] 1.020 Urine Protein 30 H Urine Glucose (UA) Normal Urine Ketones 5 H Urine Occult Blood 10 H Urine Nitrite Negative Urine Bilirubin 1 H Urine Urobilinogen Normal Ur Leukocyte Esterase 500 H Urine RBC 0-5 SEEN Urine WBC 10-25 SEEN Ur Squamous Epith Cells 10-25 SEEN Urine Bacteria 2+ Urine Mucus 2+ Urine Test Negative Radiography Diagnostic Testing: Clinical Impression(s) from Imaging Studies Abdomen/Pelvis CT 05/07/24 12:59 IMPRESSION: 13.4 x 10.4 x 7.5 cm fat-containing ventral hernia. Bowel containing hernia. No bowel obstruction or inflammation. Normal appendix. Normal kidneys. No hydronephrosis. Fatty liver. Electronically Signed: Russell Barnett MD at 13:50 EDT , Discharge Plan Triage Chief Complaint: Abd Pain ED Provider: Bridger Salmeron Dx/Rx/DC Orders Instructions: ED Hernia (Adult) Prescriptions: New hydrocodone-acetaminophen 5-325 mg tablet 1 tab PO Q4H PRN PRN (Reason: Pain) 3 Days Qty: 10 0RF ondansetron 4 mg tablet,disintegrating 4 mg PO Q8H PRN PRN (Reason: Nausea) Qty: 14 0RF No Action oxycodone 5 mg tablet 5 - 10 mg PO Q6H PRN (Reason: pain) 5 Days Qty: 20 0RF ondansetron [ondansetron] 4 mg tablet,disintegrating 4 mg PO Q8H PRN PRN (Reason: Nausea) Qty: 10 0RF Stand Alone Forms: ED Work / School Excuse Primary Care Provider: Kristy Chairez Referrals: Rio Funk MD [Med Staff - Active Staff] - 3-5 Days Care Physician,No Primary [Non-Staff] - Disposition Disposition: Home, Self Care
[2024-02-29 13:08] LABS: Color, Urine Yellow (Yellow); Glucose, Dipstick Normal (Normal); Ketone-Dipstick 5 mg/dl (Negative); Leukocyte Esterase-Dipstick 500 /ul (Negative); Nitrite-Dipstick Negative (Negative); Occult Blood-Urine 10 /ul (Negative); Protein-Dipstick 30 mg/dl (Negative); Urine Clarity Cloudy (Clear); Urine Urobilinogen Normal (Normal)
[2024-02-29 13:10] LABS: Urine Bilirubin Dipstick 1 mg/dL (Negative)
[2024-02-29 13:11] LABS: Internal QC Validated? YES +Cl - CLEAR BKGD; Pregnancy, Urine Negative Negative
[2024-02-29 13:18] LABS: Bacteria 2+ /hpf (None Seen); Mucous, Urine 2+ /hpf (<or=2+); Red Blood Cells-Urine 0-5 SEEN /hpf (0-5); Squamous Epithelial Cells - UA 10-25 SEEN /hpf (5-10); White Blood Cells 10-25 SEEN /hpf (0-5)
[2024-02-29] MEDS: Morphine 4 MG/ML Syringe IV ×2 (13:19→14:31)
[2024-02-29] MEDS: Ondansetron 4 MG/2 ML Vial IV (13:19)
[2024-02-29 13:21] VITALS: BMI 52.2
[2024-02-29 13:28] LABS: ALB/GLOB Ratio 0.8 RATIO (0.9-2.4); AST(SGOT) 28 U/L (15-37); Alanine Aminotransfer ALT/SGPT 33 U/L (13-56); Albumin, Serum 3.2 g/dL (3.2-5.0); Alkaline Phosphatase 58 U/L (45-117); Anion Gap 2 (5-15); BUN 6 mg/dL (7-18); BUN/Creat Ratio 6.8 RATIO (10-20); Calcium,Total 8.5 mg/dL (8.5-10.1); Chloride 107 mmol/L (98-107); Creatinine, Serum 0.89 mg/dL (0.55-1.02); EST Glomerular Filtration Rate 80 mL/min (>60); Est Glom Filt Rate - Afr Amer 96 mL/min (>60); Estimated Creatinine Clearance 125.03 ml/min; Glucose 93 mg/dL (74-106); Lipase 20 U/L (13-75); Potassium 3.2 mmol/L (3.5-5.1); Protein, Total 7.2 g/dL (6.4-8.2); Sodium Level 139 mmol/L (136-145)
[2024-02-29 13:40] VITALS: BP 126/84; PULSE 64; RESP 16; O2SAT 98
== END 2024-02-29 16:10 | disposition home or self-care (01) ==
PROVIDERS: Emergency Provider Student in an Organized Health Care Education/Training Program; PCP Family Medicine; Visit Provider Student in an Organized Health Care Education/Training Program
DX: R10.9 Unspecified abdominal pain (principal); Z90.49 Acquired absence of other specified parts of digestive tract; F17.290 Nicotine dependence, other tobacco product, uncomplicated; K46.9 Unspecified abdominal hernia without obstruction or gangrene
CPT/HCPCS: 74177; 80053; 81001; 81025; 83690; 85025; 96374; 96375; 96376; 99283; Q9967; A4216; J2405

== ENCOUNTER 2024-03-15 05:40 | Day surgery (SDC) | payer SELFPAY ==
--- NOTE | 2024-03-09 13:40 | EKG12_ITS ---
Test Reason : PRE OP Blood Pressure : / mmHG Vent. Rate : 084 BPM Atrial Rate : 084 BPM P-R Int : 116 ms QRS Dur : 078 ms QT Int : 392 ms P-R-T Axes : 061 073 034 degrees QTc Int : 463 ms Normal sinus rhythm Normal ECG Confirmed by Tomas Chacon ([id number]), editorial clerk MARCIE ANTUNEZ ([id number]) on 03/13/2024 10:06:15 AM Referred By: Rio Funk Confirmed By:Tomas Chacon
[2024-03-09 14:57] LABS: Anion Gap 0 (5-15); BUN 10 mg/dL (7-18); BUN/Creat Ratio 13.4 RATIO (10-20); Calcium,Total 8.6 mg/dL (8.5-10.1); Chloride 108 mmol/L (98-107); Creatinine, Serum 0.75 mg/dL (0.55-1.02); EST Glomerular Filtration Rate 97 mL/min (>60); Est Glom Filt Rate - Afr Amer 117 mL/min (>60); Glucose 101 mg/dL (74-106); Sodium Level 137 mmol/L (136-145)
[2024-03-15] VITALS (8 sets, daily range): BP systolic 114–139; BP diastolic 41–95; PULSE 63–92; RESP 14–20; TEMP 36–36.7; O2SAT 88–100; BMI 53.1
[2024-03-15 06:22] LABS: Internal QC Validated? YES +Cl - CLEAR BKGD; Pregnancy, Urine Negative Negative
[2024-03-15] MEDS: Lactated Ringers 1,000 ML 15 ML IV (06:22)
--- NOTE | 2024-03-15 06:33 | HP.PCM_ITS ---
History and Physical Date of Admission: 03/15/24 Intake Vital Signs 02/28/2411:40 03/02/2413:56 Height 5 ft 3 in 5 ft 3 in Weight: 298 lb BMI 52.7 BP 134/86 H Blood Pressure Location Rt brachial Respiration 16 Intake Visit Reasons: HERNIA, ER FU Chief Complaint: hernia Infusion Nurse Required: No Is patient in pain?: Yes (abdomen) Pain scale (1-10): 5 Allergies No Known Allergies Allergy (Verified 03/02/24 13:57) Medications ondansetron 4 mg disintegrating tablet 4 mg PO Q8H PRN PRN Nausea #10 tabs 10/25/23 [Rx] hydrocodone-acetaminophen 5-325mg 5mg-325mg 1 tab PO Q4H PRN PRN Pain 3 days #10 TABLETS 02/29/24 [Rx Confirmed 03/02/24] PFSH Medical History Anxiety Asthma BMI 50.0-59.9, adult Chronic cholecystitis Depression Former smoker PCOS (polycystic ovarian syndrome) 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 Vapes nicotine containing substance Wears glasses Surgical History History of esophagogastroduodenoscopy (EGD) History of laparoscopic cholecystectomy (~03/23/18) Hx of colonoscopy Social History Smoking Status: Former smoker alcohol intake: former details: social substance use type: does not use caffeine: Yes what type of physical activity do you participate in: walking seatbelt use: always do you feel safe at home: Yes additional social history: Spouse Valeriy Shipley Patient works at [employer] for [employer] Female Reproductive History Menstrual Ab spontaneous: 1 HPI HPI HPI: Patient is a 28-year-old female here after ER visit to discuss hernia repair. The patient had laparoscopic cholecystectomy in 2018 and she has been having bulging in that area ever since. She says it is becoming more painful and larger and is not reducible anymore. She denies fevers or chills or acute pain in the area but she says that is very painful for most of her day especially if she eats. ROS General General: Yes fatigue; No weight change, appetite, colon cancer, breast cancer or weakness HEENT HEENT: No difficulty swallowing, eye injury, eye surgery, swollen glands or hoarseness Endo Endocrine: No thyroid disease, diabetes mellitus, thyroid cancer, Hair loss, heat intolerance or cold intolerance Skin Skin: No rash or changing moles Breast Breast: No left breast lump, right breast lump, nipple discharge, breast pain, abnormal mammogram, abnormal US or breast enlargement Musc Musculoskeletal: No back problems, arthritis, rheumatoid arthritis, gout or joint pain Cardio Cardiovascular: No murmur, pacemaker, heart disease, atrial fibrillation, high blood pressure, heart attack, heart stent, palpitations, shortness of breat with exertion or chest pain Psych Psychiatric: Yes anxiety; No depression or hearing voices Resp Respiratory: No shortness of breath, No sleep apnea, No cough, No COPD, Yes asthma, No emphysema and No wheezing Gastro Gastrointestinal: Yes abdominal pain, Yes nausea or vomiting, Yes diarrhea, No constipation, No blood in stool, No acid reflux, No hemorrhoids, No ulcers, No gallbladder problem and No black,tarry stools Raúl Hematologic: No blood thinners, No blood disorders, No bleeding, No anemia and No blood clots Neuro Neurologic: No system reviewed and no additional complaints, except as documented, No as per HPI, No abnormal gait, No abnormal hearing, No abnormal movements, No abnormal speech, No behavioral changes, No burning sensations, No confusion, No convulsions, No disequilibrium, No dizziness, No localized weakness, No frequent falls, No headache(s), No lack of coordination, No loss of vision, No memory loss, No numbness, No other visual disturbances, No radicular pain, No restless legs, No sensory deficit, No syncope, No tingling, No tremor(s), No weakness and No other Exam Const General: cooperative Orientation: alert and oriented x3 [facility] Head: normal to inspection Neck Neck: normal visual inspection and full ROM Chest Chest palpation & inspection: normal inspection of the chest Resp Effort & Inspection: normal respiratory effort Auscultation: clear to auscultation bilaterally Cardio Rate: regular rate Rhythm: regular rhythm GI Inspection: non-distended Palpation: soft, hernia ventral and nontender Skin General: no rashes or lesions noted Neuro General: patient alert and patient oriented x3 Extrem General: full ROM Psych Appearance: grossly normal Mental Status: mental status grossly normal Assessment and Plan Assessment and Plan (1) Abdominal pain: Status: Acute Qualifiers: Abdominal location: right upper quadrant Qualified Code(s): R10.11 - Right upper quadrant pain (2) Ventral hernia: Status: Acute Qualifiers: Obstruction and gangrene presence: without obstruction or gangrene Qualified Code(s): K43.9 - Ventral hernia without obstruction or gangrene Plan The patient has an incarcerated right upper quadrant hernia. The neck of the hernia is small at 2 cm but the contents are very large at about 13 cm. I discussed hybrid approach to repairing her hernia. I will make an incision over the hernia sac and reduce the contents and close the hernia and then laparoscopically place mesh. I discussed the procedure in detail as well as the risks including but not limited to bleeding, infection, need for open surgery, injury to underlying organs. Patient understands the risks and is willing to proceed. Rio Funk MD Pager: [facility] [address] [place] [address], [address] [place] [address] Office: I have examined the patient and the H&P has been reviewed. There are no clinical changes since date of exam.
[2024-03-15] MEDS: Cefazolin 3 GM in 0.9% Normal Saline (100mL Bag) 100 ML IV (07:25)
--- NOTE | 2024-03-15 07:30 | HERN_PTH ---
PATIENT: DIPIKA ALTAMIRANO LOC: [facility] U#:[id number] AGE/SX: 28/F ROOM: RE03/15/[address]: Dr. Rio Funk MD : 1995 BED: DIS: 03/15/2024 SPEC #: [id number] RECD: 03/15/24 10:06 STATUS: GRACIELA NEAL #: [id number] LEFTY: 03/15/24 07:[address]: Rio Funk DEPT: SURGICAL PATHOLOGY RECD BY: Robert Jean ENTERED: 03/15/24 11:26 SP TYPE: Hernia OTHR DR: Dr. Kristy Chairez MD Tissues: HERNIA Procedures: Surgery Specimen Level II HEADER OPERATION: Hernia, hybrid lap/open ventral repair with mesh PRE-OP DIAGNOSIS: Abdominal pain, ventral hernia TISSUE SUBMITTED: Hernia sac MICROSCOPIC DIAGNOSIS Ventral hernia, herniorrhaphy: Fibrosis and minimal chronic inflammation. Benign mature fibrofatty tissue. / 03/16/2024 MICROSCOPIC DESCRIPTION Slides are reviewed. GROSS DESCRIPTION Received in fixative is one container labeled with the patient's name and designated Hernia sac. The specimen consists of two irregular fragments of yellow fatty tissue ranging in size from 13.0 to 15.0cm in greatest dimension. The largest fragment resembles omentum. Serial sections do not reveal mass lesions. [employer]st sections are submitted in two cassettes. / 03/15/2024 TC:5 CPT: 97048
[2024-03-15] MEDS: Bupiv/Epi 0.25% 30 ML Vial (09:06)
--- NOTE | 2024-03-15 09:25 | OP.PCM_ITS ---
Report of Operation Date of Procedure: 03/15/24 Pre-Operative Diagnosis: Incarcerated ventral hernia less than 3 cm Post-Operative Diagnosis: Same Surgery/Procedure Performed:: Hybrid open and laparoscopic ventral hernia repair with mesh Type of Anesthesia: General/Regional Specimen's removed: Hernia sac and contents Drains: REMEDIOS to bulb suction Estimated Blood Loss (mL): 15 Description of Procedure: Patient was brought back to the operating room and general anesthesia was induced. The abdomen was prepped and draped in the usual sterile fashion. Visiport technique was used to enter the abdomen in the left upper quadrant through a 5 mm incision. The abdomen was then insufflated 15 mmHg. The camera was used to inspect the abdomen for injuries and there were none. Under direct visualization a left lower quadrant 5 mm port was placed. Using electrocautery some of the fat was taken down from the anterior abdominal wall. I was unable to reduce the contents. The hernia was opened slightly at the level of the abdominal wall and this still did not allow for reduction of contents. Next a larger incision was marked right over the hernia defect and injected with local anesthetic. Incision was made with a scalpel and electrocautery was used to maintain hemostasis. The hernia sac was identified and dissected free from the surrounding attachments. It was opened and the hernia sac was resected. I was still unable to reduce the omental tissue and it was amputated using harmonic scalpel. There was good hemostasis. The stalk of the omentum was reduced into the abdomen and the contents were sent for pathology with the hernia sac. The hernia defect was closed with interrupted [id number] Nurolon sutures leaving 1 in the middle clipped instead of tied and then the 12 mm port was placed through this and the balloon was inflated and the abdomen was reinsufflated 15 mmHg. Next an [address] round mesh with echo positioning device was placed through the large ventral port site and then the port was removed. The suture was tied. Next the abdomen was reinsufflated 50 mL of mercury and the balloon was insufflated for the deployment device. The mesh was tacked to the anterior abdominal wall using secure strap tacker in 4 cardinal locations and the balloon was removed through one of the 5 mm ports. It was removed intact and fully. Next under direct visualization the mesh was tacked to the anterior abdominal wall using circumferential secure strap tacks. There was good coverage of the hernia defect. Next the abdomen was allowed to desufflate. There was a large cavity in the subcutaneous tissue from the hernia and so 10 Bolivian flat drain was placed into the cavity and brought out through a separate small stab incision. The drain was sutured to the skin using 3-0 nylon suture. The drain was trimmed. The cavity was irrigated and suctioned dry. Hemostasis was obtained using electrocautery. The subcutaneous tissue was closed using 3-0 Vicryl suture. The dermis was closed with a running 4-0 Monocryl suture. The small incisions were closed with interrupted 4-0 Monocryl sutures. All of the incisions were injected with local anesthetic. Steri- Strips and bandages were applied. Patient tolerated the procedure well was brought to PACU in stable condition. Grafts/Implants Used: [address] mesh Admit VTE Documentation VTE Mechan Device Prophylaxis: SCD's
--- NOTE | 2024-03-15 09:30 | EX.PCM.DISCH ---
Discharge Instructions Procedure Hernia Diet Discharge Diet: Light diet - advance as tolerated Activity Discharge Activity: May Not Drive (for 2-3 days or while taking narcotic pain meds.) and May Shower (with the bandage in place 1-2 days after surgery.) Lifting Restrictions: 20 pounds for 6 weeks. Additional Activity Instructions:: Climbing stairs is fine, walking is encouraged. Sitting in bed may be uncomfortable. Sitting up using your lateral muscles (sitting up sideways) is usually more comfortable. Do not drive, work heavy equipment of sign legal documents for 24 hours. Pain medications may cause nausea, you should typically eat light foods as you take your pain medications. Pain medications may also cause constipation. If you have difficulty with this, discuss with your doctor. Alternate ibuprofen and Tylenol for pain, oxycodone for breakthrough pain. Dressing / Incision Call your doctor if your incision/area has: Continuous Slow Oozing, Sudden Increased Bleeding, Increased Pain/ Swelling, Increased Redness and Foul Smelling Discharge Call your doctor if you observe: Fever of 101 or Higher, Numbness or Tingling and Inability to have a bowel movement Suture Line Care: Avoid Pulling/Pushing and Avoid Pinching/Bending Remove Dressing in: 2 days (Remove clear bandages in 2 days, remove Steri-Strips in 7 to 10 days.) Cleanse incision/area with: Soap & Water Drain: Suction Additional Dressing/Incision Instructions:: Empty REMEDIOS when half-full and record daily outputs Follow Up Care Please Follow Up With: Rio Funk MD When: Please call to schedule 1 week follow up appointment. [phone] Test Results: Test results from this visit will be discussed in further detail at your follow-up appointment, if applicable. Discharge Plan Admission Attending Provider: Rio Funk Primary Care Provider: Kristy Chairez Instructions Print Language: Armenian Discharge Orders/Prescriptions Prescriptions: New oxycodone 5 mg Tablet 5 - 10 mg PO Q4H PRN PRN (Reason: Pain Score 4-10) 5 Days Qty: 20 0RF Discontinued hydrocodone-acetaminophen 5-325 mg tablet 1 tab PO Q4H PRN PRN (Reason: Pain) 3 Days Qty: 10 0RF No Action ondansetron [ondansetron] 4 mg tablet,disintegrating 4 mg PO Q8H PRN PRN (Reason: Nausea) Qty: 10 0RF loratadine [Allergy Relief (loratadine)] 10 mg tablet 10 mg PO DAILY Referrals / Follow Up: Kristy Chairez MD [Primary Care Provider] - Disposition Disposition (needs filled in before D/C Order can be placed): Home, Self Care
[2024-03-15] MEDS: oxyCODONE 5 MG Tablet PO (11:08)
== END 2024-03-15 11:47 | disposition home or self-care (01) ==
LOC: SDC 05:41 → AC 05:41
PROVIDERS: Anesthesiology; PCP Family Medicine; Referring Provider Surgery; Visit Provider Surgery
PROC: 0WQF4ZZ Repair Abdominal Wall, Percutaneous Endoscopic Approach (ICD-10-PCS; CPT 49592; principal; 2024-03-15 07:10)
DX: K43.6 Other and unspecified ventral hernia with obstruction, without gangrene (principal); J45.909 Unspecified asthma, uncomplicated; Z87.891 Personal history of nicotine dependence; Z79.51 Long term (current) use of inhaled steroids
CPT/HCPCS: 49592; 36415; 80048; 81025; 88302; 93005; J7120; J2405

== ENCOUNTER 2025-08-30 09:41 | Emergency (ER) | payer SELFPAY ==
[2025-08-30 09:41] VITALS: BP 155/84; PULSE 81; RESP 16; TEMP 36.7; O2SAT 97; BMI 53.4
--- NOTE | 2025-08-30 09:59 | CT_ITS ---
PROCEDURE: CT/Abdomen/Pelvis W IV Cont ONLY
--- NOTE | 2025-08-30 10:00 | ED.VIS.GI ---
HPI HPI - GI History of Present Illness Chief Complaint: Abd Pain Informant: patient Abdominal Pain/Flank Pain Onset: Weeks (1) Context: Gradual Onset Timing: Continuous Quality: Sharp Location: RLQ, Right Flank and - (Periumbilical) Worsened by: Movement Relieved by: - (Heating pad) Nausea/Vomiting/Emesis GI Symptom: Positive for Nausea; Negative for Vomiting Diarrhea/Melena/Hematochezia GI Symptom: Positive for Diarrhea; Negative for Melena or Hematochezia Associated Symptoms Associated Symptoms: Negative for Dysuria, Frequency or Hematuria LMP: 08/08/2025 Narrative Narrative: Patient presents with abdominal pain that has been getting progressively worse over the past week. Patient states her pain is over the periumbilical area and radiates to her right lower abdomen and into her back. Patient admits to decreased appetite. Patient states she had to force herself to eat last night. Patient describes her pain as sharp. Patient states it waxes and wanes. Patient states it is worse with any movement. Patient states she used a heating pad last night which helped somewhat. Patient admits to some nausea but denies any vomiting. Patient also admits to some diarrhea but denies any melena or hematochezia. Patient denies any dysuria, frequency, or hematuria. Patient states her last menstrual period was 08/08/2025. 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 Vapes nicotine containing substance Wears glasses Depression Former smoker Asthma Anxiety Chronic cholecystitis BMI 50.0-59.9, adult PCOS (polycystic ovarian syndrome) Home Medications ?Medication ?Instructions ?Recorded ?Last Taken ?Type NK 08/30/25 Unknown History Allergy/AdvReac Type Severity Reaction Status Date / Time No Known Allergies Allergy Verified 08/30/25 09:41 Surgical History S/P repair of ventral hernia History of breast biopsy Hx of colonoscopy History of esophagogastroduodenoscopy (EGD) History of laparoscopic cholecystectomy (~03/23/18) Social History (Updated 08/30/25 @ 10:19 by Dior Macedo) current occupational status: employed Smoking Status: Current every day smoker tobacco type: cigarettes and e-cigarettes alcohol intake: former details: social substance use type: does not use caffeine: Yes what type of physical activity do you participate in: walking seatbelt use: always do you feel safe at home: Yes additional social history: Spouse Valeriy Shipley Patient works at [employer] for [employer] ED Constitutional Constitutional ED: Reports chills; Denies fever(s) Eyes Eyes: Denies blurry vision or change in vision ENT ENT ED: Denies rhinorrhea or sore throat Cardiovascular Cardiovascular: Denies chest pain or palpitations Respiratory/Chest Respiratory/Chest: Reports cough; Denies dyspnea Gastrointestinal Gastrointestinal: Denies nausea or vomiting Genitourinary Genitourinary ED: Denies dysuria or hematuria Musculoskeletal Musculoskeletal: Reports back pain; Denies neck pain Integumentary Denies abscess or rash Neurologic Neurologic: Reports headache(s); Denies weakness Allergic/Immunologic Allergic/Immunologic ED: Denies mouth swelling or urticaria EXAM Physical Exam Const Vital Signs: 08/30/25 09:41 08/30/25 11:41 Temperature 98.1 F Temperature Source Oral Pulse Rate 81 68 Respiratory Rate 16 15 Blood Pressure 155/84 H 140/71 H Blood Pressure Mean 107 94 Pulse Ox 97 100 Oxygen Delivery Method Room Air Positive well nourished and well developed Constitutional Narrative: BMI is 53.5 General Appearance ED: well developed and NAD HEENT Reports moist mucous membranes Neck supple and no JVD Resp normal respiratory effort and clear to auscultation bilaterally Cardio regular rate and regular rhythm GI non-distended Palpation: soft and tender RLQ and periumbilical; Negative for guarding or rebound tenderness present Extremity full ROM Neuro CN's II-XII intact bilaterally, moves all extremities and no sensory deficits noted Sensorium / Orientation: alert Motor Exam: strength 5/5 throughout Psych mental status grossly normal and thought process normal MDM MDM MDM Narrative Medical decision making narrative: Differential diagnosis includes appendicitis, ureteral calculus, bowel obstruction, perforation, electrolyte abnormality, dehydration, colitis, diverticulitis, ectopic , and urinary tract infection. CBC will be obtained to assess for leukocytosis and anemia. Basic metabolic profile will be obtained to assess for electrolyte abnormality and renal function. Serum hCG will be obtained to assess for . Urinalysis will be obtained to assess for urinary tract infection and hematuria. CT scan of the abdomen and pelvis will be obtained to assess for appendicitis, bowel obstruction, perforation, ureteral calculus, and diverticulitis. Lab Data Attestation: I reviewed the patient's lab results. Lab results narrative: CBC was reviewed and was within normal. Basic metabolic profile was reviewed and was within normal limits. Serum hCG was reviewed and was negative. Urinalysis was reviewed. There is no evidence of urinary tract infection or hematuria. Labs: Laboratory Results - last 24 hr 08/30/25 08/30/25 10:15 10:48 WBC 9.6 RBC 4.80 Hgb 13.3 Hct 41.6 MCV 86.7 MCH 27.7 MCHC 32.0 RDW Std Deviation 44.0 H RDW Coeff of Frac[place] 14.0 Plt Count 221 MPV 11.4 Immature Gran % (Auto) 1.000 H Neut % (Auto) 71.7 H Lymph % (Auto) 20.9 [place] % (Auto) 5.0 Eos % (Auto) 0.8 Baso % (Auto) 0.6 Absolute Neuts (auto) 6.9 Absolute Lymphs (auto) 2.00 Nucleated RBC % 0 Sodium 137 Potassium 3.9 Chloride 104 Carbon Dioxide 25.3 Anion Gap 8 BUN 9 Creatinine 0.71 Estim Creat Clear Calc 156.29 Est GFR (MDRD) Non-Af 116 BUN/Creatinine Ratio 11.9 Glucose 108 H Calcium 8.6 Serum , Qual NEGATIVE Urine Color Yellow Urine Clarity Clear Urine pH 6.0 Ur Specific Peninsula 1.015 Urine Protein 15 H Urine Glucose (UA) Normal Urine Ketones Negative Urine Occult Blood 10 H Urine Nitrite Negative Urine Bilirubin Negative Urine Urobilinogen Normal Ur Leukocyte Esterase Negative Urine RBC 0 SEEN Urine WBC 0 SEEN Ur Squamous Epith Cells 5-10 SEEN Urine Bacteria 0 SEEN Urine Mucus 0 SEEN Radiography Diagnostic Testing: Clinical Impression(s) from Imaging Studies Abdomen/Pelvis CT 08/30/25 09:59 IMPRESSION: 1. Moderate-size fat containing midline proximal ventral wall hernia, with increased size of the fascial defect. No CT signs to suggest incarceration, however clinical correlation is recommended. 2. Hepatomegaly with diffuse hepatic steatosis. Reading Location: [facility] CT scan of the abdomen and pelvis was obtained. There is no evidence of appendicitis. There is no free air or free fluid. There is a ventral hernia containing fat. There is no incarceration noted. This was interpreted by the radiologist and was also independently reviewed by myself. Treatment and Re-Evaluation :: Patient was given IV fluids, morphine, and Zofran. Patient was feeling better on reevaluation. Patient was advised of her findings. Patient was instructed to eat a bland diet. Patient was instructed to advance as tolerated. Patient was instructed to follow-up with her primary care physician in 5 to 7 days. Patient understood and was agreeable with the plan. All questions were answered. Discharge Plan Triage Chief Complaint: Abd Pain ED Provider: Mario Thompson Dx/Rx/DC Orders Clinical Impression: Abdominal pain, Ventral hernia Instructions: ED Abdominal Pain Unkn Cause Fem Prescriptions: No Action NK Primary Care Provider: Care Physician,No Primary Referrals: Kristy Chairez MD [Med Staff - [facility] Train Operator, Family Practice] - 5-7 Days Print Language: Mohawk Disposition Disposition: Home, Self Care
[2025-08-30] MEDS: 0.9% Normal Saline (1000mL) 1,000 ML 999 ML IV (10:15)
[2025-08-30 10:28] LABS: Hematocrit 41.6 % (37-47); Hemoglobin 13.3 g/dL (12.0-15.0); Immature Granulocytes Count 0.100 X10^3/uL (0.0-0.0); Mean Corp Hgb Conc 32.0 g/dL (32-36); Mean Corpuscular Volume 86.7 fL (81-99); Mean Platelet Vol. 11.4 fl (6.2-12.0); NRBC Flagged by Analyzer 0 % (0-5); Platelet Count 221 K/mm3 (150-450); RBC Distribution Width CV 14.0 % (11.6-14.6); RBC Distribution Width SD 44.0 fl (35.1-43.9); Red Blood Count 4.80 M/mm3 (4.2-5.4); White Blood Count 9.6 K/mm3 (4.4-11.0)
[2025-08-30 10:42] LABS: Internal QC Validated? YES +Cl - CLEAR BKGD; Pregnancy, Serum, hCG Quali. NEGATIVE Negative; Record Kit Lot#, Serum Preg. 0000980607
[2025-08-30 10:51] LABS: Mucous, Urine 0 SEEN /hpf (<or=2+); Red Blood Cells-Urine 0 SEEN /hpf (0-5)
[2025-08-30 10:54] LABS: Color, Urine Yellow (Yellow); Glucose, Dipstick Normal (Normal); Ketone-Dipstick Negative (Negative); Leukocyte Esterase-Dipstick Negative /ul (Negative); Nitrite-Dipstick Negative (Negative); Occult Blood-Urine 10 /ul (Negative); Protein-Dipstick 15 mg/dl (Negative); Specific Gravity, Urine 1.015 (1.002-1.030); Urine Bilirubin Dipstick Negative (Negative)
[2025-08-30 11:01] LABS: Squamous Epithelial Cells - UA 5-10 SEEN /hpf (5-10)
[2025-08-30 11:16] LABS: Anion Gap 8 (5-15); BUN 9 mg/dL (4-19); BUN/Creat Ratio 11.9 RATIO (10-20); Calcium,Total 8.6 mg/dL (7.6-11.0); Carbon Dioxide 25.3 mmol/L (21.0-32.0); Chloride 104 mmol/L (98-108); Estimated Creatinine Clearance 156.29 ml/min (50-250); Glucose 108 mg/dL (70-99); Potassium 3.9 mmol/L (3.3-5.1)
[2025-08-30 11:41] VITALS: BP 140/71; PULSE 68; RESP 15; O2SAT 100
[2025-08-30 12:53] VITALS: BP 140/71; PULSE 68; RESP 15; TEMP 36.6; O2SAT 100
== END 2025-08-30 12:53 | disposition home or self-care (01) ==
PROVIDERS: Emergency Provider Emergency Medicine; Visit Provider Emergency Medicine
DX: K43.9 Ventral hernia without obstruction or gangrene (principal); F17.210 Nicotine dependence, cigarettes, uncomplicated; F17.290 Nicotine dependence, other tobacco product, uncomplicated
CPT/HCPCS: 74177; 80048; 81001; 84703; 85025; 96361; 96374; 96375; 99282; Q9967; A4216; J2405